=== PATIENT | female | born 1990 | race Caucasian/White ===

== ENCOUNTER 2017-09-19 12:18 | Emergency (ER) | payer SELFPAY ==
[~2017-09-19] VITALS: Ht 160 cm; Wt 57.7 kg
[2017-09-19 12:19] VITALS: BP 131/88; PULSE 86; RESP 14; TEMP 98.6; O2SAT 100
[2017-09-19] MEDS ORDERED: BUPIVACAINE HCL PF 0.5% 10 ML VIAL INFIL ONE (14:00)
[2017-09-19] MEDS ORDERED: LIDOCAINE HCL 1% 30 ML VIAL INFIL ONE (14:00)
[2017-09-19] MEDS ORDERED: TETANUS/DIPHTHERIA TOXOID ADULT 0.5 ML VIAL IM ONE (14:00)
--- NOTE | 2017-09-19 14:03 | PD ---
HPI Chief Complaint: Laceration/Skin Injury Time Seen by Provider: 13:54 Travel History International Travel<30 days: No Contact w/Intl Traveler<30days: No Traveled to known affect area: No History of Present Illness HPI Patient comes emergency department for evaluation of a laceration to right index finger and abrasion to right thumb that occurred shortly prior to arrival. Patient states she was sharpening a weed razor that had just been in a mason when the incident occurred. Patient uncertain of her last tetanus shot but noted in the computer received in 2013. Patient denies doing anything for this prior to coming to the emergency department. Denies any pain or radiation of pain. Patient [id number]. Denies anything making symptoms better or worse. 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 SKIN: Small superficial abrasion on dorsal aspect of the left thumb. Small approximately 1.5 cm laceration noted on the medial dorsal aspect of right index finger. No foreign body noted. Full range of motion. Neurovascularly intact distally. HEAD: Atraumatic. Normocephalic. EYES: Pupils equal and round. EOMI. No scleral icterus. No injection or drainage. ENT: No nasal bleeding or discharge. Mucous membranes pink and moist. NECK: Trachea midline. Supple. No nuclear rigidity. RESPIRATORY: No accessory muscle use. No respiratory distress. MUSCULOSKELETAL: No obvious deformities. No clubbing. No cyanosis. No edema. Full range of motion. NEUROLOGICAL: Awake and alert. No obvious cranial nerve deficits. Motor grossly within normal limits. Normal speech. PSYCHIATRIC: Appropriate mood and affect; insight and judgment normal. Data Data Last Documented VS Vital Signs Date Time Temp Pulse Resp B/P (MAP) Pulse Ox O2 Delivery O2 Flow Rate FiO2 09/19/17 14:54 09/19/17 12:19 98.6 86 14 100 Orders Orders Tetanus/Diphtheria Tox Adult (Tetanus/Di (09/19/17 14:00) Bupivacaine Pf 0.5% Inj (Marcaine Pf 0.5 (09/19/17 14:00) Lidocaine 1% Inj (Xylocaine 1% Inj) (09/19/17 14:00) Lidocaine Pf 1% Inj (Xylocaine-Mpf 1% In (09/19/17 14:15) Ed Discharge Order (09/19/17 14:47) MDM Medical Decision Making Medical Screen Exam Complete: Yes Emergency Medical Condition: Yes Differential Diagnosis Laceration, abrasion, contusion, foreign body Narrative Course The patient suffered laceration/s to the extremity. There was no evidence to suggest foreign bodies. Visual and tactile exams were unremarkable without evidence of foreign body at this time. There was no evidence of neurovascular injury. The patient had a normal distal vascular exam, and had full normal motor and sensory exams. There was also no evidence or tendon injury, with normal distal full range of motions, flexion, extension, abduction, adduction and opponens. There was no evidence of local joint space involvement at this time. The patient was irrigated with copious sterile normal saline and primary repair was performed. Please see procedure note. The patient was given signs and symptom warnings for infection, such as increasing pain, redness, swelling, associated heat, pus or fever. The patient was warned of possible unseen foreign body and instructed to return immediately if signs or symptoms develop. The patient was given instructions for timely follow up. The patient agreed with plan of care. Patient in no obvious distress upon re-evaluation. Patient placed on Cipro prophylactically. There as no seawater involvement thus no need for Doxy. Patient was asked if they wanted to speak to my attending, which the patient did not wish to do at this time. Any questions/concerns in reference to patient diagnosis/condition discussed and clarified prior to patient's discharge. Reinforced sheer importance of close follow up with patient's primary physician or primary care clinic. Instructed patient to return to ED immediately, if symptoms return/worsen. Patient showed understanding of above instructions. Further instructions and recommendations were detailed in discharge paperwork. Patient ambulated without difficulty out of ED at discharge. Procedures Procedure Narrative LACERATION REPAIR LOCATION: Right index finger medial dorsal aspect between the middle and distal phalanx LENGTH: Approximately 1.5 cm NUMBER OF STITCHES/BALDO: One simple mattress REPAIR: Verbal consent was obtained. The area of the laceration was cleaned and prepped. Digital block were performed using Marcaine without epi in lidocaine without epi. The wound was copiously irrigated and explored without evidence of foreign body, bony involvement, ligament injury, tendon injury, or neurovascular injury. The wound was closed using 5-0 Vicryl. This was a single layer repair. A sterile dressing was applied by nurse. The patient was advised to keep the affected area as clean and dry as possible using soap and water. There were no complications. Patient tolerated the procedure well. Diagnosis Primary Impression: Finger laceration Qualified Codes: S61.220A - Laceration with foreign body of right index finger without damage to nail, initial encounter Additional Impression: Abrasion Referrals: Oneida Briscoe MD [facility] Patient Instructions: Abrasion (ED), Care For Your Absorbable Stitches (ED), Finger Laceration (ED), General Instructions Additional Instructions: Follow-up with your primary care physician and/or hand surgeon in 3-5 days for reevaluation. Take all medication as prescribed. Keep wound dry and clean as possible using soap and water. Use Neosporin to promote healing. Do not soak or submerge wound. Return to the emergency department if symptoms get worse. Med/Other Pt SpecificInfo: Prescription(s) given Scripts Ciprofloxacin (Cipro) 500 Mg Tab 500 MG PO BID for Infection for 5 Days, #10 TAB 0 Refills Prov: Yeyo Craig MD 09/19/17 Disposition: 01 DISCHARGE HOME Condition: Stable Adolfo Demarco Sep 19, 2017 14:03
[2017-09-19] MEDS ORDERED: LIDOCAINE HCL 1% PF 30 ML VIAL INFIL ONE (14:15)
[2017-09-19] MEDS ORDERED: CIPR-9 PO (14:40)
== END 2017-09-19 14:55 | disposition home or self-care (01) ==
LOC: NEPK 12:18
DX: S61.210A Laceration without foreign body of right index finger without damage to nail, initial encounter (principal); S60.311A Abrasion of right thumb, initial encounter; W26.8XXA Contact with other sharp object(s), not elsewhere classified, initial encounter; F31.9 Bipolar disorder, unspecified; F41.9 Anxiety disorder, unspecified; F17.200 Nicotine dependence, unspecified, uncomplicated; Z23 Encounter for immunization
CPT/HCPCS: 12001; 90471; 90714

== ENCOUNTER 2017-11-10 14:41 | Emergency (ER) | payer OTHER ==
[~2017-11-10] VITALS: Ht 160 cm; Wt 60.0 kg
[~2017-11-10 14:41] MED LIST: CIPR-9 PO
[2017-11-10 15:20] VITALS: BP 112/60; PULSE 68; RESP 16; TEMP 98.2; O2SAT 99
--- NOTE | 2017-11-10 17:57 | PD ---
HPI Chief Complaint: Related Problem Time Seen by Provider: 17:50 Travel History International Travel<30 days: No Contact w/Intl Traveler<30days: No Traveled to known affect area: No History of Present Illness HPI 26-year-old female , LMP the end of August, here for evaluation of intermittent lower abdominal cramping. She states that she went to a free clinic today where she had an ultrasound performed and showed no heart rate. She denies vaginal bleeding or discharge. No urinary symptoms. No fevers. She is concerned because her previous ended in a miscarriage. 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 SKIN: Focused skin assessment warm/dry. HEAD: Atraumatic. Normocephalic. EYES: Pupils equal and round. No scleral icterus. No injection or drainage. ENT: Mucous membranes pink and moist. NECK: Trachea midline. No JVD. CARDIOVASCULAR: Regular rate and rhythm. RESPIRATORY: No accessory muscle use. Clear to auscultation. Breath sounds equal bilaterally. GASTROINTESTINAL: Abdomen soft, non-tender, nondistended. MUSCULOSKELETAL: No obvious deformities. No clubbing. No cyanosis. No edema. NEUROLOGICAL: Awake and alert. No obvious cranial nerve deficits. Motor grossly within normal limits. Normal speech. PSYCHIATRIC: Appropriate mood and affect; insight and judgment normal. Data Data Last Documented VS Vital Signs Date Time Temp Pulse Resp B/P (MAP) Pulse Ox O2 Delivery O2 Flow Rate FiO2 11/10/17 15:20 98.2 68 16 112/60 (77) 99 Orders Orders Beta Hcg (Quant/Titer) (11/10/17 17:55) Complete Blood Count With Diff (11/10/17 17:55) Comprehensive Metabolic Panel (11/10/17 17:55) Urinalysis - C+S If Indicated (11/10/17 17:55) Ed Urine Pregnancytest Poc (11/10/17 17:55) Us Pelvis (Ques Pr/Ect)W Trans (11/10/17 ) Labs Laboratory Tests Test 11/10/17 18:10 White Blood Count 9.5 TH/MM3 Red Blood Count 4.51 MIL/MM3 Hemoglobin 14.2 GM/DL Hematocrit 40.7 % Mean Corpuscular Volume 90.4 FL Mean Corpuscular Hemoglobin 31.5 PG Mean Corpuscular Hemoglobin Concent 34.8 % Red Cell Distribution Width 13.3 % Platelet Count 238 TH/MM3 Mean Platelet Volume 8.2 FL Neutrophils (%) (Auto) 69.0 % Lymphocytes (%) (Auto) 24.8 % Monocytes (%) (Auto) 5.3 % Eosinophils (%) (Auto) 0.6 % Basophils (%) (Auto) 0.3 % Neutrophils # (Auto) 6.5 TH/MM3 Lymphocytes # (Auto) 2.3 TH/MM3 Monocytes # (Auto) 0.5 TH/MM3 Eosinophils # (Auto) 0.1 TH/MM3 Basophils # (Auto) 0.0 TH/MM3 CBC Comment DIFF FINAL Differential Comment Urine Color YELLOW Urine Turbidity CLOUDY Urine pH 6.5 Urine Specific [place] 1.022 Urine Protein TRACE mg/dL Urine Glucose (UA) NEG mg/dL Urine Ketones NEG mg/dL Urine Occult Blood NEG Urine Nitrite NEG Urine Bilirubin NEG Urine Urobilinogen LESS THAN 2.0 MG/DL Urine Leukocyte Esterase MOD Urine WBC 6 /hpf Urine Squamous Epithelial Cells 98 /hpf Urine Bacteria FEW /hpf Urine Mucus FEW /lpf Microscopic Urinalysis Comment CULT NOT INDICATED Blood Urea Nitrogen 11 MG/DL Creatinine 0.73 MG/DL Random Glucose 93 MG/DL Total Protein 7.7 GM/DL Albumin 3.9 GM/DL Calcium Level 9.1 MG/DL Alkaline Phosphatase 49 U/L Aspartate Amino Transf (AST/SGOT) 28 U/L Alanine Aminotransferase (ALT/SGPT) 79 U/L Total Bilirubin 0.2 MG/DL Sodium Level 135 MEQ/L Potassium Level 3.4 MEQ/L Chloride Level 104 MEQ/L Carbon Dioxide Level 22.3 MEQ/L Anion Gap 9 MEQ/L Estimat Glomerular Filtration Rate 97 ML/MIN Human Chorionic Gonadotropin, Quant 08919 MIU/ML MDM Medical Decision Making Medical Screen Exam Complete: Yes Emergency Medical Condition: Yes Differential Diagnosis , ectopic , spontaneous , missed , UTI Narrative Course Vital signs show heart rate 68, blood pressure 112/60, pulse ox 99% on room air , oral temperature 98.2F. CBC is unremarkable. CMP is unremarkable. Beta hCG is 48,541. UA: Cloudy, moderate leukocyte esterase, 6 WBCs, few bacteria, few mucus, culture not indicated. Pelvic ultrasound: CONCLUSION: 1. 8 week gestational age intrauterine with apparent demise. 2. Small cyst of the left ovary, probably corpus luteal. Nothing typical of an ectopic. No free fluid. Patient was made aware of all findings. She is resting comfortably. Again she has not had any vaginal bleeding or discharge. She will be started on Keflex for bacteriuria. I explained all the results in detail with her and told her that this is more than likely a miscarriage, however my recommendation at this time is to have her repeat her pelvic ultrasound and beta-hCG in 1 week. She was advised on when to return to the emergency department patient verbalizes understanding and agreement with plan. Diagnosis Primary Impression: Early vs miscarriage Additional Impression: Bacteriuria Referrals: Gas Specialist 3 days Primary Care Physician 3 days Additional Instructions: Follow-up with an SPECTROGRAPHER physician or your primary care physician to have repeat beta-hCG and pelvic ultrasound in 1 week. Return to the emergency department for worsening symptoms or any other concerns. Scripts Cephalexin (Keflex) 500 Mg Cap 500 MG PO Q12H for Infection for 5 Days, #10 CAP 0 Refills Prov: Felix Pittman MD 11/10/17 Disposition: 01 DISCHARGE HOME Condition: Stable Felix Pittman MD Nov 10, 2017 17:57
[2017-11-10 18:29] LABS: AUTOMATED NEUTROPHIL # 6.5 TH/MM3 (1.8-7.7); BASOPHIL % 0.3 % (0.0-2.0); EOSINOPHIL # 0.1 TH/MM3 (0-0.4); EOSINOPHIL % 0.6 % (0.0-4.0); HEMATOCRIT 40.7 % (35.0-46.0); HEMOGLOBIN 14.2 GM/DL (11.6-15.3); LYMPH % 24.8 % (9.0-44.0); LYMPHOCYTE # 2.3 TH/MM3 (1.0-4.8); MEAN CELL VOLUME 90.4 FL (80.0-100.0); MEAN CORPUSCULAR HEMOGLOBIN 31.5 PG (27.0-34.0); MEAN CORPUSCULAR HGB CONC 34.8 % (32.0-36.0); MEAN PLATELET VOLUME 8.2 FL (7.0-11.0); MONO % 5.3 % (0.0-8.0); MONOCYTE # 0.5 TH/MM3 (0-0.9); PLATELET COUNT 238 TH/MM3 (150-450); RED BLOOD COUNT 4.51 MIL/MM3 (4.00-5.30); RED CELL DISTRIBUTION WIDTH 13.3 % (11.6-17.2); WHITE BLOOD COUNT 9.5 TH/MM3 (4.0-11.0)
[2017-11-10 18:39] LABS: BACTERIA, URINE FEW /hpf; BILIRUBIN, URINE NEG (NEG); BLOOD, URINE NEG (NEG); GLUCOSE,URINE NEG (NEG); KETONE, URINE NEG (NEG); MUCUS URINE FEW /lpf (OCC); NITRITE,URINE NEG (NEG); PH, URINE 6.5 (5.0-8.5); SQUAMOUS EPITHELIAL CELL URINE 98 /hpf (0-5); URINE COLOR YELLOW (YELLW/STRAW); URINE LEUKOCYTE ESTERASE MOD (NEG)
[2017-11-10 18:45] LABS: ALBUMIN 3.9 GM/DL (3.4-5.0); ALT (GPT) 79 U/L (10-53); AST (GOT) 28 U/L (15-37); BICARBONATE 22.3 MEQ/L (21.0-32.0); BLOOD UREA NITROGEN 11 MG/DL (7-18); CALCIUM 9.1 MG/DL (8.5-10.1); CHLORIDE 104 MEQ/L (98-107); CREATININE 0.73 MG/DL (0.50-1.00); GLOMERULAR FILTRATION RATE 97 ML/MIN (>89); GLUCOSE,RANDOM 93 MG/DL (74-106); SODIUM (NA) 135 MEQ/L (136-145)
[2017-11-10 19:02] LABS: ALKALINE PHOSPHATASE 49 U/L (45-117); TOTAL BILIRUBIN ADULT 0.2 MG/DL (0.2-1.0); TOTAL PROTEIN 7.7 GM/DL (6.4-8.2)
--- NOTE | 2017-11-10 19:30 | RADRPT ---
EXAM DATE/TIME: 11/10/2017 18:31 [facility] COMPARISON: No previous studies available for comparison. INDICATIONS : Pelvic pain. LAB(S): Beta-hC MEDICAL HISTORY : Bipolar disorder. Depression. Anxiety. Substance abuse. SURGICAL HISTORY : Appendectomy. ENCOUNTER: Initial ACUITY: 1 day PAIN SCORE: 110 LOCATION: Bilateral pelvis MEASUREMENTS: UTERUS: 8.8 x 6.7 x 4.7 cm ENDOMETRIAL STRIPE: 17 mm RIGHT OVARY: 3.3 x 1.6 x 2.0 cm LEFT OVARY: 3.0 x 2.5 x 2.1 cm FREE FLUID: No CROWN RUMP LENGTH: 1.7 = 8 WKS 1 DAYS FHR: NOT VISUALIZED BPM FINDINGS: UTERUS: Yolk sac the gestational sac and pole seen within the uterine cavity at approximately 8 weeks o ne day gestational age based on crown-rump length. No perceptible heart tones. RIGHT OVARY: Ovary contains no mass or significant cystic lesion. LEFT OVARY: 15 mm cyst. MISCELLANEOUS: No free fluid. CONCLUSION: 1. 8 week gestational age intrauterine with apparent demise. 2. Small cyst of the left ovary, probably corpus luteal. Nothing typical of an ectopic. No free fluid . Luis Eduardo Irwin MD on November 10, 2017 at 19:26 Board Certified Radiologist. This report was verified electronically.
[2017-11-10] MEDS ORDERED: CEPH-460 PO (19:45)
[2017-11-10] MEDS ORDERED: CEPHALEXIN MONOHYDRATE 500 MG CAP PO ONE (20:00)
== END 2017-11-10 20:00 | disposition home or self-care (01) ==
LOC: NEPD 14:41
DX: O26.891 Other specified pregnancy related conditions, first trimester (principal); R82.71 Bacteriuria; Z3A.08 8 weeks gestation of pregnancy
CPT/HCPCS: 76700; 76817; 80053; 81001; 84702; 84703; 85025

== ENCOUNTER → 2017-11-21 | Day surgery (SDC) | payer OTHER ==
[~2017-11-21] VITALS: Ht 160 cm; Wt 59.7 kg
[~2017-11-21] MED LIST changes: +ACETAMINOPHEN 1000 MG/100 ML 100 ML IV ONE; +CEFAZOLIN INJ 2,000 MG in SODIUM CHLORIDE 0.9% INJ 100 ML IV SCH; +CEPH-460 PO; +CHLORHEXIDINE GLUCONATE 2 % 1 PACK (2 CLOTHS) TOPICAL PRN; +DEXAMETHASONE SOD PHOS 4 MG/ML VIAL IV ONE; +DO NOT ADM ANY ANTICOAGULANT DRUGS PRN; +KETOROLAC TROMETHAMINE 30 MG/ML (IVP) VIAL IV PUSH ONE; +LACTATED RINGER'S 1000 ML IV PRN; +LIDOCAINE HCL 1% PF 5 ML SYRINGE OTHER ONE; +METOPROLOL TARTRATE 25 MG TAB PO PRN; +MIDAZOLAM HCL 2 MG/2 ML VIAL ONE; +ONDANSETRON HCL 4 MG/2 ML VIAL IV ONE; +ONDANSETRON HCL 4 MG/2 ML VIAL IV PUSH PRN; +ONDANSETRON ODT 4 MG TAB PO PRN; +POVIDONE IODINE 5% (ANTISEPSIS KIT) 4 APPLICATIONS EACH NARE PRN; +PROPOFOL 200 MG/20 ML AMP IV ONE; +SODIUM CHLORID 0.9% 500 ML IV PRN
--- NOTE | 2017-11-21 08:35 | MP ---
cc: Johnny Tong MD DATE OF OPERATION: 11/21/2017 PREOPERATIVE DIAGNOSIS: Missed . POSTOPERATIVE DIAGNOSIS: Missed . OPERATION: Suction curettage. SURGEON: Johnny Tong MD ANESTHESIA: General. ESTIMATED BLOOD LOSS: 100 mL DATA ANALYST REPORT WRITER: None. COMPLICATIONS: None. FINDINGS: Consistent with a missed approximately 8 weeks. PROCEDURE: The patient was prepped and draped in the dorsal lithotomy position. A weighted speculum was placed in the posterior vaginal and the anterior lip of cervix grasped with a single-tooth tenaculum. Cervix was dilated up using Dontrell dilators, and then a #8 suction curetting instrument was entered in the endometrial cavity and curettings were taken, after which the tenaculum and speculum were removed. Good hemostasis was noted and the patient returned to recovery room in stable condition. MD MARITZA Abernathy/LK , 08:22 AM , 08:34 AM
[2017-11-21 10:04] VITALS: BP 99/63; PULSE 70; RESP 18; TEMP 97.9; O2SAT 100
== END | disposition home or self-care (01) ==
LOC: HSDC 05:40
PROVIDERS: ATTEND Obstetrics & Gynecology
DX: O02.1 Missed abortion (principal)
CPT/HCPCS: 01965; 59820; 86850; 86900; 86901; 88305; J0131; J0690; J1100; J1885; J2250; J2405; J7120

== ENCOUNTER 2018-01-02 06:53 | Emergency (ER) | payer OTHER ==
[2018-01-02] MEDS: KETOROLAC TROMETHAMINE 60 MG/2 ML (IM) VIAL IM (07:38)
[2018-01-02] MEDS: AMOXICILLIN/CLAVULANATE K 875 MG TAB PO (08:05)
[2018-01-02] MEDS: CLINDAMYCIN PHOS 600 MG/4 ML VIAL IM (08:05)
[2018-01-02] MEDS: traMADol HCL 50 MG TAB PO (08:29)
== END 2018-01-02 08:59 | disposition home or self-care (01) ==
LOC: NEPD 06:53
DX: S91.131A Puncture wound without foreign body of right great toe without damage to nail, initial encounter (principal); W22.8XXA Striking against or struck by other objects, initial encounter; Y92.828 Other wilderness area as the place of occurrence of the external cause
CPT/HCPCS: 73630; 96372; 99283-25

== ENCOUNTER 2018-01-02 19:09 | Inpatient (IN) | payer OTHER ==
[~2018-01-02] VITALS: Ht 160 cm; Wt 61.6 kg
[2018-01-02] MEDS: SODIUM CHLOR 0.9% 1000 ML INJ 1,000 ML IV SCH
[~2018-01-02 19:09] MED LIST changes: -ACETAMINOPHEN 1000 MG/100 ML 100 ML IV ONE; +AUGM875T3 PO; -CEFAZOLIN INJ 2,000 MG in SODIUM CHLORIDE 0.9% INJ 100 ML IV SCH; -CEPH-460 PO; -CHLORHEXIDINE GLUCONATE 2 % 1 PACK (2 CLOTHS) TOPICAL PRN; -CIPR-9 PO; +CLIN150C14 PO; -DEXAMETHASONE SOD PHOS 4 MG/ML VIAL IV ONE; -DO NOT ADM ANY ANTICOAGULANT DRUGS PRN; +IBUP1TAB7 PO; -KETOROLAC TROMETHAMINE 30 MG/ML (IVP) VIAL IV PUSH ONE; -LACTATED RINGER'S 1000 ML IV PRN; -LIDOCAINE HCL 1% PF 5 ML SYRINGE OTHER ONE; -METOPROLOL TARTRATE 25 MG TAB PO PRN; -MIDAZOLAM HCL 2 MG/2 ML VIAL ONE; -ONDANSETRON HCL 4 MG/2 ML VIAL IV ONE; -ONDANSETRON HCL 4 MG/2 ML VIAL IV PUSH PRN; -ONDANSETRON ODT 4 MG TAB PO PRN; -POVIDONE IODINE 5% (ANTISEPSIS KIT) 4 APPLICATIONS EACH NARE PRN; -PROPOFOL 200 MG/20 ML AMP IV ONE; -SODIUM CHLORID 0.9% 500 ML IV PRN; +TRAM50TA PO
[2018-01-02 19:49] VITALS: BP 116/64; PULSE 115; RESP 18; TEMP 99.2; O2SAT 95
--- NOTE | 2018-01-02 20:59 | PD ---
HPI Chief Complaint: GI Complaint Time Seen by Provider: 20:58 Travel History International Travel<30 days: No Contact w/Intl Traveler<30days: No Traveled to known affect area: No History of Present Illness HPI 42-year-old female came to the emergency room with history of vomiting since she left the hospital today. Patient says she was in the emergency room to be seen for her right toe infection after she stepped on something while she was in the mason yesterday. It was hurting and she came to the emergency room for that. She was given IV antibiotic and pain medication and was discharged home on prescription antibiotic. However patient says after she left she must have vomited 10 times and has been unable to keep anything down. She feels very dehydrated. She was tachycardic in triage with a temperature of 99.9. She also has noticed some streaking going up her foot from the toe area. [facility] Past Medical History Narrative Medical List of her past medical, surgical, social and family history reviewed from the nursing note. Bipolar Disorder: Yes Anxiety: Yes Depression: Yes Cancer: No Cardiovascular Problems: No Diabetes: No Diminished Hearing: No Endocrine: No Genitourinary: No Hepatitis: No Hiatal Hernia: No Immune Disorder: No Musculoskeletal: No Neurologic: No Psychiatric: No Reproductive: No Respiratory: No Tetanus Vaccination: < 5 Years Influenza Vaccination: No ?: Not LMP: mischarage last month : 1 Para: 0 Miscarriage: 1 : 0 Past Surgical History Abdominal Surgery: Yes (APPY) Appendectomy: Yes Body Medical Devices: NONE Cardiac Surgery: No Ear Surgery: No Endocrine Surgery: No Eye Surgery: No Genitourinary Surgery: No Gynecologic Surgery: Yes (D&C) Oral Surgery: No Thoracic Surgery: No Other Surgery: Yes Social History Alcohol Use: No Tobacco Use: Yes Substance Use: No Allergies-Medications (Allergen,Severity, Reaction): Coded Allergies: No Known Allergies (Unverified , 01/02/18) Comments No known drug allergies. Reported Meds & Prescriptions Reported Meds & Active Scripts Active Tramadol (Tramadol HCl) 50 Mg Tab 50 Mg PO Q4H PRN Ibuprofen 800 Mg Tab 800 Mg PO Q6HR PRN Augmentin (Amoxicillin-Clavulanate) 875-125 Mg Tab 1 Tab PO BID 10 Days Clindamycin (Clindamycin HCl) 150 Mg Cap 450 Mg PO Q6H 10 Days Narrative Medication List of her home medications reviewed from the nursing note. Review of Systems Except as stated in HPI: all other systems reviewed are Neg Gastrointestinal: Positive: Nausea, Vomiting Physical Exam Narrative GENERAL: Awake, alert, moderate distress SKIN: Focused skin assessment warm/dry. Flushed HEAD: Atraumatic. Normocephalic. EYES: Pupils equal and round. No scleral icterus. No injection or drainage. ENT: No nasal bleeding or discharge. Mucous membranes pink and moist. NECK: Trachea midline. No JVD. CARDIOVASCULAR: Regular rate and rhythm. No murmur appreciated. RESPIRATORY: No accessory muscle use. Clear to auscultation. Breath sounds equal bilaterally. GASTROINTESTINAL: Abdomen soft, non-tender, nondistended. Hepatic and splenic margins not palpable. MUSCULOSKELETAL: No obvious deformities. No clubbing. No cyanosis. No edema. Right foot great toe appears to be erythematous and swollen mostly on the dorsal aspect. The plantar aspect of the toe has a wound that does not have any discharge. There is two red streaks going proximally on the dorsum of the foot from the toe to the ankle NEUROLOGICAL: Awake and alert. No obvious cranial nerve deficits. Motor grossly within normal limits. Normal speech. PSYCHIATRIC: Appropriate mood and affect; insight and judgment normal. Data Data Last Documented VS Orders Orders Sepsis Workup Initiated (01/02/18 ) Complete Blood Count With Diff (01/02/18 21:09) Comprehensive Metabolic Panel (01/02/18 21:09) Lactic Acid Sepsis Protocol (01/02/18 21:09) Urinalysis - C+S If Indicated (01/02/18 21:09) Blood Culture (01/02/18 21:09) Blood Glucose (01/02/18 21:09) Ecg Monitoring (01/02/18 21:09) Iv Access Insert/Monitor (01/02/18 21:09) Oximetry (01/02/18 21:09) Oxygen Administration (01/02/18 21:09) Acetaminophen (Tylenol) (01/02/18 21:15) Sodium Chlor 0.9% 1000 Ml Inj (Ns 1000 M (01/02/18 21:15) Sodium Chlor 0.9% 1000 Ml Inj (Ns 1000 M (01/02/18 21:15) Ondansetron Inj (Zofran Inj) (01/02/18 21:15) Vancomycin Inj (Vancomycin Inj) (01/02/18 21:15) Diphenhydramine Inj (Benadryl Inj) (01/02/18 22:45) Drug Screen, Random Urine (01/02/18 22:53) Admit Order (Ed Use Only) (01/02/18 22:56) Vancomycin Consult Pharmacy (Vancomycin (01/02/18 23:00) Piperacil-Tazo 4.5 Gm Premix (Zosyn 4.5 (01/02/18 23:00) Westergren Sedimentation Rate (01/02/18 22:54) C-Reactive Protein (Crp) (01/02/18 22:54) Consult Podiatry (01/02/18 ) Ct Foot W Iv Contrast (01/02/18 ) Admit To Inpatient (01/02/18 ) Vital Signs (Adult) Q4H (01/02/18 22:54) Activity Oob With Assistance (01/02/18 22:54) Diet Npo (01/03/18 Breakfast) Sodium Chlor 0.9% 1000 Ml Inj (Ns 1000 M (01/02/18 22:54) Sodium Chloride 0.9% Flush (Ns Flush) (01/02/18 23:00) Sodium Chloride 0.9% Flush (Ns Flush) (01/03/18 09:00) Ondansetron Inj (Zofran Inj) (01/02/18 23:00) Comprehensive Metabolic Panel (01/03/18 06:00) Complete Blood Count With Diff (01/03/18 06:00) Pt Request For Service (01/02/18 22:54) Case Management Consult (01/02/18 22:54) Scd Bilateral/Knee High DOUG.BID (01/02/18 22:54) Naloxone Inj (Narcan Inj) (01/02/18 23:00) Magnesium Hydroxide Liq (Milk Of Magnesi (01/02/18 23:00) Sennosides (Senokot) (01/02/18 23:00) Bisacodyl Supp (Dulcolax Supp) (01/02/18 23:00) Lactulose Liq (Lactulose Liq) (01/02/18 23:00) Inpatient Certification (01/02/18 ) Beta Hcg (Quant/Titer) (01/02/18 21:51) Labs Laboratory Tests Test 01/02/18 21:51 White Blood Count 19.8 TH/MM3 Red Blood Count 4.54 MIL/MM3 Hemoglobin 13.7 GM/DL Hematocrit 40.7 % Mean Corpuscular Volume 89.7 FL Mean Corpuscular Hemoglobin 30.2 PG Mean Corpuscular Hemoglobin Concent 33.7 % Red Cell Distribution Width 12.8 % Platelet Count 270 TH/MM3 Mean Platelet Volume 8.8 FL Neutrophils (%) (Auto) 92.5 % Lymphocytes (%) (Auto) 4.7 % Monocytes (%) (Auto) 2.7 % Eosinophils (%) (Auto) 0.0 % Basophils (%) (Auto) 0.1 % Neutrophils # (Auto) 18.3 TH/MM3 Lymphocytes # (Auto) 0.9 TH/MM3 Monocytes # (Auto) 0.5 TH/MM3 Eosinophils # (Auto) 0.0 TH/MM3 Basophils # (Auto) 0.0 TH/MM3 CBC Comment DIFF FINAL Differential Comment Erythrocyte Sedimentation Rate 7 mm/hr Blood Urea Nitrogen 14 MG/DL Creatinine 0.85 MG/DL Random Glucose 89 MG/DL Total Protein 7.8 GM/DL Albumin 4.0 GM/DL Calcium Level 9.1 MG/DL Alkaline Phosphatase 71 U/L Aspartate Amino Transf (AST/SGOT) 37 U/L Alanine Aminotransferase (ALT/SGPT) 62 U/L Total Bilirubin 0.7 MG/DL Sodium Level 138 MEQ/L Potassium Level 4.2 MEQ/L Chloride Level 106 MEQ/L Carbon Dioxide Level 24.1 MEQ/L Anion Gap 8 MEQ/L Estimat Glomerular Filtration Rate 81 ML/MIN Lactic Acid Level 0.9 mmol/L Human Chorionic Gonadotropin, Quant 2 MIU/ML MDM Medical Decision Making Medical Screen Exam Complete: Yes Emergency Medical Condition: Yes Medical Record Reviewed: Yes Differential Diagnosis Cellulitis, thrombophlebitis, outpatient treatment failure, dehydration, sepsis Narrative Course 9:26 PM awaiting for blood test result. Patient is getting IV fluid bolus, IV Zofran and IV vancomycin. Patient will get Tylenol for fever. I have let her know that she would require to be admitted given the fact that the infection seems to be getting worse. 10:41 PM blood test results are back and white count is significantly elevated with a left shift. Chemistries back and within acceptable limit. Lactic acid is within normal limits. Patient started having some redness with the vancomycin infusion probably red man's syndrome. I will order some Benadryl. Awaiting for the hospitalist to call back for admission. She should be consulted with podiatry for this. Procedures EKG Prior to Arrival: No Diagnosis Primary Impression: Cellulitis Qualified Codes: L03.115 - Cellulitis of right lower limb Additional Impressions: Thrombophlebitis SIRS (systemic inflammatory response syndrome) Vomiting Qualified Codes: R11.2 - Nausea with vomiting, unspecified Admitting Information Admitting Physician Requests: Admit Chad Kumar MD January 02, 2018 20:59
[2018-01-02] MEDS ORDERED: ONDANSETRON HCL 4 MG/2 ML VIAL IV PUSH ONE (21:15)
[2018-01-02] MEDS ORDERED: VANCOMYCIN INJ 1,000 MG in SODIUM CHLOR 0.9% 250 ML INJ 250 ML IV ONE (21:15)
[2018-01-02] MEDS ORDERED: SODIUM CHLOR 0.9% 1000 ML INJ 1,000 ML IV ONE ×2 (21:15)
[2018-01-02] MEDS ORDERED: ACETAMINOPHEN 325 MG TAB PO ONE (21:15)
[2018-01-02 21:55] VITALS: BP 107/55; PULSE 86; RESP 18; O2SAT 100
[2018-01-02 22:00] VITALS: BP 107/55; PULSE 105; RESP 18; O2SAT 99
[2018-01-02 22:26] LABS: AUTOMATED NEUTROPHIL # 18.3 TH/MM3 (1.8-7.7); BASOPHIL % 0.1 % (0.0-2.0); HEMATOCRIT 40.7 % (35.0-46.0); HEMOGLOBIN 13.7 GM/DL (11.6-15.3); LYMPH % 4.7 % (9.0-44.0); LYMPHOCYTE # 0.9 TH/MM3 (1.0-4.8); MEAN CELL VOLUME 89.7 FL (80.0-100.0); MEAN CORPUSCULAR HEMOGLOBIN 30.2 PG (27.0-34.0); MEAN CORPUSCULAR HGB CONC 33.7 % (32.0-36.0); MEAN PLATELET VOLUME 8.8 FL (7.0-11.0); MONO % 2.7 % (0.0-8.0); MONOCYTE # 0.5 TH/MM3 (0-0.9); NEUT % 92.5 % (16.0-70.0); PLATELET COUNT 270 TH/MM3 (150-450); RED BLOOD COUNT 4.54 MIL/MM3 (4.00-5.30); RED CELL DISTRIBUTION WIDTH 12.8 % (11.6-17.2); WHITE BLOOD COUNT 19.8 TH/MM3 (4.0-11.0)
[2018-01-02 22:39] LABS: ALT (GPT) 62 U/L (10-53)
[2018-01-02 22:40] LABS: AST (GOT) 37 U/L (15-37); BICARBONATE 24.1 MEQ/L (21.0-32.0); BLOOD UREA NITROGEN 14 MG/DL (7-18); CALCIUM 9.1 MG/DL (8.5-10.1); CHLORIDE 106 MEQ/L (98-107); CREATININE 0.85 MG/DL (0.50-1.00); GLOMERULAR FILTRATION RATE 81 ML/MIN (>89); GLUCOSE,RANDOM 89 MG/DL (74-106); SODIUM (NA) 138 MEQ/L (136-145)
[2018-01-02 22:41] LABS: ALKALINE PHOSPHATASE 71 U/L (45-117); TOTAL BILIRUBIN ADULT 0.7 MG/DL (0.2-1.0); TOTAL PROTEIN 7.8 GM/DL (6.4-8.2)
[2018-01-02] MEDS ORDERED: diphenhydrAMINE HCL 50 MG/ML VIAL IV PUSH ONE (22:45)
[2018-01-02] MEDS ORDERED: BISACODYL 10 MG SUPP RECTAL PRN (23:00)
[2018-01-02] MEDS ORDERED: Vancomycin Consult Pharmacy 1 EA OTHER SCH (23:00)
[2018-01-02] MEDS ORDERED: SODIUM CHLORIDE 0.9% FLUSH 10 ML FLUSH IV FLUSH PRN (23:00)
[2018-01-02] MEDS ORDERED: LACTULOSE SYRUP 20 GM/30 ML CUP PO PRN (23:00)
[2018-01-02] MEDS ORDERED: SENNOSIDES 8.6 MG TAB PO PRN (23:00)
[2018-01-02] MEDS ORDERED: MAGNESIUM HYDROXIDE SUSP 30 ML CUP PO PRN (23:00)
[2018-01-02] MEDS ORDERED: NALOXONE HCL 0.4 MG/ML AMP IV PUSH PRN (23:00)
[2018-01-02] MEDS ORDERED: ONDANSETRON HCL 4 MG/2 ML VIAL IVP PRN (23:00)
[2018-01-02 23:09] VITALS: BP 103/53; PULSE 101; RESP 16; O2SAT 100
[2018-01-02 23:25] LABS: BILIRUBIN, URINE NEG (NEG); BLOOD, URINE NEG (NEG); GLUCOSE,URINE NEG (NEG); KETONE, URINE 80 mg/dL (NEG); MUCUS URINE FEW /lpf (OCC); NITRITE,URINE NEG (NEG); PH, URINE 6.5 (5.0-8.5); RENAL EPITHELIAL CELLS <1 /hpf; SQUAMOUS EPITHELIAL CELL URINE 11 /hpf (0-5); URINE COLOR YELLOW (YELLW/STRAW); URINE LEUKOCYTE ESTERASE NEG (NEG)
[2018-01-02] MEDS ORDERED: MORPHINE SULFATE 4 MG/ML INJ IV PUSH PRN (23:45)
[2018-01-03] VITALS (9 sets, daily range): BP systolic 93–135; BP diastolic 51–67; PULSE 78–99; RESP 16–20; TEMP 98–99; O2SAT 95–100
[2018-01-03] MEDS ORDERED: oxyCODONE/ACETAMINOPHEN 5 MG/325 MG TAB PO PRN
[2018-01-03] MEDS ORDERED: NALOXONE HCL 0.4 MG/ML AMP IV PUSH PRN
--- NOTE | 2018-01-03 00:21 | HHI.HP ---
HPI Service [facility] Primary Care Physician No Primary Care Physician Admission Diagnosis Cellulitis, thrombophlebitis, SIRS Diagnoses: Travel History International Travel<30 Days: No Contact w/Intl Traveler <30 Da: No Traveled to Known Affected Are: No History of Present Illness 27-year-old female with no significant past medical history, who initially presented with pain and swelling of right toe this morning, having stepped on what she thought was rebar in a fresh water mason yesterday. She was sent home on by mouth antibiotics, Augmentin and Clinda however returns to the hospital due to nausea and vomiting since this morning, unable to keep anything down. Positive subjective fevers. Constant severe pain in right toe, worsening since yesterday Review of Systems Except as stated in HPI: all other systems reviewed are Neg Past Family Social History Past Medical History She denies any past medical history She does have a past history of polysubstance abuse Past Surgical History Appendectomy. Dilation and curettage Reported Medications Patient has been taking Augmentin and clindamycin today. Allergies: Coded Allergies: No Known Allergies (Unverified , 01/02/18) Family History Father with a stroke. Social History Patient smokes one half pack per day for the past 10 years. Denies drinking. He denies illicit drugs, however has a history of polysubstance abuse. Physical Exam Vital Signs Vital Signs Date Time Temp Pulse Resp B/P (MAP) Pulse Ox O2 Delivery O2 Flow Rate FiO2 01/02/18 23:09 101 16 103/53 (70) 100 Room Air 01/02/18 22:00 105 18 107/55 (72) 99 Room Air 01/02/18 21:55 86 18 107/55 (72) 100 Room Air 01/02/18 19:49 99.2 115 18 116/64 (81) 95 Physical Exam GENERAL: This is a well-nourished, well-developed patient, in no apparent distress. Alert and oriented 3. SKIN: No rashes, ecchymoses or lesions. Cool and dry. HEAD: Atraumatic. Normocephalic. No temporal or scalp tenderness. EYES: Pupils equal round and reactive. Extraocular motions intact. No scleral icterus. No injection or drainage. ENT: Nose without bleeding, purulent drainage or septal hematoma. Throat without erythema, tonsillar hypertrophy or exudate. Uvula midline. Airway patent. NECK: Trachea midline. No JVD or lymphadenopathy. Supple, nontender, no meningeal signs. CARDIOVASCULAR: Regular rate and rhythm without murmurs, gallops, or rubs. RESPIRATORY: Clear to auscultation. Breath sounds equal bilaterally. No wheezes , rales, or rhonchi. GASTROINTESTINAL: Abdomen soft, non-tender, nondistended. No hepato-splenomegaly , or palpable masses. No guarding. MUSCULOSKELETAL: Extremities without clubbing, cyanosis, or edema. effusion, or edema noted. No calf tenderness. Negative Homans sign bilaterally. Patient has small puncture wound right first toe with erythema extending up to the dorsum of the foot. Tender to palpation. No crepitus. NEUROLOGICAL: Awake and alert. Cranial nerves II through XII intact. Motor and sensory grossly within normal limits. Five out of 5 muscle strength in all muscle groups. Normal speech. Laboratory Laboratory Tests Test 01/02/18 21:51 01/02/18 23:06 White Blood Count 19.8 Red Blood Count 4.54 Hemoglobin 13.7 Hematocrit 40.7 Mean Corpuscular Volume 89.7 Mean Corpuscular Hemoglobin 30.2 Mean Corpuscular Hemoglobin Concent 33.7 Red Cell Distribution Width 12.8 Platelet Count 270 Mean Platelet Volume 8.8 Neutrophils (%) (Auto) 92.5 Lymphocytes (%) (Auto) 4.7 Monocytes (%) (Auto) 2.7 Eosinophils (%) (Auto) 0.0 Basophils (%) (Auto) 0.1 Neutrophils # (Auto) 18.3 Lymphocytes # (Auto) 0.9 Monocytes # (Auto) 0.5 Eosinophils # (Auto) 0.0 Basophils # (Auto) 0.0 CBC Comment DIFF FINAL Differential Comment Erythrocyte Sedimentation Rate 7 Blood Urea Nitrogen 14 Creatinine 0.85 Random Glucose 89 Total Protein 7.8 Albumin 4.0 Calcium Level 9.1 Alkaline Phosphatase 71 Aspartate Amino Transf (AST/SGOT) 37 Alanine Aminotransferase (ALT/SGPT) 62 Total Bilirubin 0.7 Sodium Level 138 Potassium Level 4.2 Chloride Level 106 Carbon Dioxide Level 24.1 Anion Gap 8 Estimat Glomerular Filtration Rate 81 Lactic Acid Level 0.9 Human Chorionic Gonadotropin, Quant 2 Urine Color YELLOW Urine Turbidity HAZY Urine pH 6.5 Urine Specific [place] 1.021 Urine Protein TRACE Urine Glucose (UA) NEG Urine Ketones 80 Urine Occult Blood NEG Urine Nitrite NEG Urine Bilirubin NEG Urine Urobilinogen LESS THAN 2.0 Urine Leukocyte Esterase NEG Urine RBC 1 Urine WBC 3 Urine Squamous Epithelial Cells 11 Urine Renal Epithelial Cells <1 Urine Mucus FEW Microscopic Urinalysis Comment CATH-CULT NOT IND Urine Opiates Screen NEG Urine Barbiturates Screen NEG Urine Amphetamines Screen NEG Urine Benzodiazepines Screen NEG Urine Cocaine Screen NEG Urine Cannabinoids Screen NEG Date/Time Source Procedure Growth Status 01/02/18 21:51 Blood Peripheral Aerobic Blood Culture Pending Received 01/02/18 21:51 Blood Peripheral Anaerobic Blood Culture Pending Received Result Diagram: 01/02/18215001/02/182150 Caprinmouna VTE Risk Assessment Clausrini VTE Risk Assessment: No/Low Risk (score <= 1) Caprini Risk Assessment Model Point Value = 1 Point Value = 2 Point Value = 3 Point Value = 5 Age 41-60 Minor surgery BMI > 25 kg/m2 Swollen legs Varicose veins or History of unexplained or recurrent spontaneous Oral contraceptives or hormone replacement Sepsis (< 1 month) Serious lung disease, including pneumonia (< 1 month) Abnormal pulmonary function Acute myocardial infarction Congestive heart failure (< 1 month) History of inflammatory bowel disease Medical patient at bed rest Age 61-74 Arthroscopic surgery Major open surgery (> 45 min) Laparoscopic surgery (> 45 min) Malignancy Confined to bed (> 72 hours) Immobilizing plaster cast Central venous access Age >= 75 History of VTE Family history of VTE Factor V Leiden Prothrombin [id number] Lupus anticoagulant Anticardiolipin antibodies Elevated serum homocysteine Heparin-induced thrombocytopenia Other congenital or acquired thrombophilia Stroke (< 1 month) Elective arthroplasty Hip, pelvis, or leg fracture Acute spinal cord injury (< 1 month) Prophylaxis Regimen Total Risk Factor Score Risk Level Prophylaxis Regimen 0-1 Low Early ambulation 2 Moderate Order ONE of the following: *Sequential Compression Device (SCD) *Heparin 5000 units SQ BID 3-4 Higher Order ONE of the following medications: *Heparin 5000 units SQ TID *Enoxaparin/Lovenox 40 mg SQ daily (WT < 150 kg, CrCl > 30 mL/min) *Enoxaparin/Lovenox 30 mg SQ daily (WT < 150 kg, CrCl > 10-29 mL/min) *Enoxaparin/Lovenox 30 mg SQ BID (WT < 150 kg, CrCl > 30 mL/min) AND/OR *Sequential Compression Device (SCD) 5 or more Highest Order ONE of the following medications: *Heparin 5000 units SQ TID (Preferred with Epidurals) *Enoxaparin/Lovenox 40 mg SQ daily (WT < 150 kg, CrCl > 30 mL/min) *Enoxaparin/Lovenox 30 mg SQ daily (WT < 150 kg, CrCl > 10-29 mL/min) *Enoxaparin/Lovenox 30 mg SQ BID (WT < 150 kg, CrCl > 30 mL/min) AND *Sequential Compression Device (SCD) Assessment and Plan Assessment and Plan //Sepsis //Right toe cellulitis = Leukocytosis of 19.8, tachycardia with heart rate in the 100s. = Lactate within normal limits -Blood cultures pending. = Oxycodone for pain control. -Infection having worsened on p.o. antibiotics today. X-ray this morning without signs of osteomyelitis, however given rapid worsening of infection on antibiotic, the fact that puncture is on the plantar surface of the toe, with erythema extending up on the dorsum of the foot, will workup for osteomyelitis. Consult podiatry. Placed on broad-spectrum antibiotics to cover MRSA and anaerobes. Consult ID due to patient requiring this infection in a mason. //Nausea vomiting //Ketones elevated on urinalysis. Likely secondary to nausea and vomiting. = IV fluids. Monitor. //Tobacco abuse. Cessation counseling provided. Discussed Condition With Patient, nurse, ED physician. Physician Certification 2 Midnight Certification Type: Admission for Inpatient Services Order for Inpatient Services The services are ordered in accordance with Medicare regulations or non- Medicare payer requirements, as applicable. In the case of services not specified as inpatient-only, they are appropriately provided as inpatient services in accordance with the 2-midnight benchmark. Estimated LOS (days): 3 days is the estimated time the patient will need to remain in the hospital, assuming treatment plan goals are met and no additional complications. Post-Hospital Plan: Home Tomer Alvarez MD January 03, 2018 00:21
[2018-01-03] MEDS ORDERED: IOHEXOL 350 MG/ML 10 ML VIAL (for RAD DIAG) IVCONTRAST ONE (01:54)
--- NOTE | 2018-01-03 02:32 | RADRPT ---
EXAM DATE/TIME: 01/03/2018 01:34 [facility] COMPARISON: No previous studies available for comparison. INDICATIONS : Right foot, first digit swelling and redness. IV CONTRAST: 100 cc Omnipaque 350 (iohexol) IV RADIATION DOSE: 7.29 CTDIvol (mGy) MEDICAL HISTORY : None SURGICAL HISTORY : None. ENCOUNTER: Initial ACUITY: 1 day PAIN SCALE: 10/10 LOCATION: Right foot. TECHNIQUE: Volumetric scanning of the foot was performed. Using automated exposure control and adjustment of th e mA and/or kV according to patient size, radiation dose was kept as low as reasonably achievable to obtain optimal diagnostic quality images. DICOM format image data is available electronically for re view and comparison. FINDINGS: BONES: No evidence of fracture. Alignment is within normal limits. JOINTS: No evidence of joint narrowing or effusion. SOFT TISSUES: Muscles, tendons, and neurovascular structures are grossly unremarkable. No evidence of mass, organiz ed fluid collection, or foreign body. CONCLUSION: Normal examination. Adelfo Mcadams MD on January 03, 2018 at 2:30 Board Certified Radiologist. This report was verified electronically.
[2018-01-03] MEDS: PIPERACIL-TAZO 4.5 GM PREMIX 100 ML IV SCH ×4 (05:16→22:48)
[2018-01-03 07:36] LABS: AUTOMATED NEUTROPHIL # 9.2 TH/MM3 (1.8-7.7); BASOPHIL % 0.1 % (0.0-2.0); EOSINOPHIL % 0.2 % (0.0-4.0); HEMATOCRIT 35.3 % (35.0-46.0); LYMPH % 17.2 % (9.0-44.0); LYMPHOCYTE # 2.1 TH/MM3 (1.0-4.8); MEAN CELL VOLUME 90.8 FL (80.0-100.0); MEAN CORPUSCULAR HEMOGLOBIN 30.8 PG (27.0-34.0); MEAN CORPUSCULAR HGB CONC 33.9 % (32.0-36.0); MONO % 7.4 % (0.0-8.0); MONOCYTE # 0.9 TH/MM3 (0-0.9); NEUT % 75.1 % (16.0-70.0); PLATELET COUNT 190 TH/MM3 (150-450); RED BLOOD COUNT 3.88 MIL/MM3 (4.00-5.30); RED CELL DISTRIBUTION WIDTH 13.2 % (11.6-17.2); WHITE BLOOD COUNT 12.3 TH/MM3 (4.0-11.0)
[2018-01-03] MEDS: SODIUM CHLORIDE 0.9% FLUSH 10 ML FLUSH IV FLUSH SCH ×2 (07:43→21:00)
[2018-01-03 07:58] LABS: ALBUMIN 2.9 GM/DL (3.4-5.0); ALKALINE PHOSPHATASE 52 U/L (45-117); ALT (GPT) 40 U/L (10-53); AST (GOT) 17 U/L (15-37); BICARBONATE 22.1 MEQ/L (21.0-32.0); BLOOD UREA NITROGEN 9 MG/DL (7-18); CALCIUM 7.6 MG/DL (8.5-10.1); CHLORIDE 110 MEQ/L (98-107); CREATININE 0.68 MG/DL (0.50-1.00); GLOMERULAR FILTRATION RATE 105 ML/MIN (>89); GLUCOSE,RANDOM 84 MG/DL (74-106); SODIUM (NA) 140 MEQ/L (136-145); TOTAL BILIRUBIN ADULT 0.5 MG/DL (0.2-1.0); TOTAL PROTEIN 5.7 GM/DL (6.4-8.2)
[2018-01-03] MEDS: SODIUM CHLOR 0.9% 1000 ML INJ 1,000 ML IV SCH ×2 (08:33→10:41)
[2018-01-03] MEDS: oxyCODONE/ACETAMINOPHEN 10 MG/325 MG TAB PO PRN ×3 (08:42→22:48)
[2018-01-03] MEDS: VANCOMYCIN 1,000 MG/NS 250 ML IV SCH ×4 (09:17→22:48)
--- NOTE | 2018-01-03 10:28 | HHI.PR ---
Subjective Remarks No nausea vomiting since last night. Patient says that the redness is much improved, says he was originally up to her ankles and her shins, now the redness is just localized to the foot but says that the foot itself is slightly more edematous compared to yesterday. Objective Vital Signs Date Time Temp Pulse Resp B/P (MAP) Pulse Ox O2 Delivery O2 Flow Rate FiO2 01/03/18 04:00 98.4 82 19 98/54 (69) 98 01/03/18 04:00 79 01/03/18 01:40 98.8 88 16 93/57 (69) 99 01/02/18 23:09 101 16 103/53 (70) 100 Room Air 01/02/18 22:00 105 18 107/55 (72) 99 Room Air 01/02/18 21:55 86 18 107/55 (72) 100 Room Air 01/02/18 19:49 99.2 115 18 116/64 (81) 95 I/O 01/02/18 01/02/18 01/02/18 01/03/18 01/03/18 01/03/18 07:00 15:00 23:00 07:00 15:00 23:00 Intake Total 2490 ml Balance 2490 ml Intake Oral 240 ml IV Total 2250 ml # Voids 2 Result Diagram: 01/03/18 0550 01/03/18 0550 Objective Remarks Exquisitely tender to palpation left MTP joint and left toe, patient withholds active flexion secondary to pain. Puncture site evident on plantar aspect of left great toe, no pus noted, erythema extending globally over entire left great toe as well as over the MTP joint A/P Assessment and Plan //Sepsis //Right toe cellulitis = Leukocytosis improving -Blood cultures pending. = Oxycodone for pain control. -Despite negative CT, history is very convincing for a refractory foot infection , at least soft tissue if not osteomyelitis. Pending podiatry and infectious disease consultations., Continue antibiotics. //Nausea vomiting //Ketones elevated on urinalysis. Likely secondary to nausea and vomiting. = IV fluids. Monitor. Ancelmo Fatima MD January 03, 2018 10:28
--- NOTE | 2018-01-03 13:21 | PD.CONS ---
History of Present Illness Service Infectious disease Consult Requested By Dr. Bebe Alvarez Reason for Consult Evaluate patient with infection of the right foot Primary Care Physician No Primary Care Physician Diagnoses: History of Present Illness Patient seen and examined. Records reviewed. Patient is a 27-year-old female, who sustained a wound on her right big toe on January 01 while working on a mason. She was not sure what she stepped on but there was a lot of stagnant water and plans on the leg. On January 02 she presented to the hospital complaining of pain and swelling on her right big toe. She apparently had some leftover antibiotic and she took a dose on January 01. In the ED she got a dose of antibiotics, and she was given a prescription for Augmentin and clindamycin. Patient however has not started taking it, and she started having nausea and vomiting. She could not keep anything down, and because of the persistent problem also with her right foot she presented back to the hospital and has been admitted. She had noted that the redness on the foot started spreading on the top of her toe going up to the distal right leg. She had some low-grade fevers. Her WBC on admission was 19,000. She has been afebrile. Imaging studies did not show any foreign body, or any osteomyelitis. Her WBC is down to 12,000. Patient has been on vancomycin and Zosyn. She denies any abdominal pain or any urinary complaint. Denies any respiratory complaint. Infectious disease consultation has been requested to evaluate the patient. Review of Systems Constitutional: DENIES: Fever, Chills Eyes: DENIES: Eye pain Ears, nose, mouth, throat: DENIES: Nasal discharge, Oral lesions, Throat pain, Hoarseness, Ear Pain, Sinus Pain Respiratory: DENIES: Cough, Shortness of breath Cardiovascular: DENIES: Chest pain, Palpitations, Dyspnea on Exertion, Lower Extremity Edema Gastrointestinal: DENIES: Abdominal pain, Constipation, Diarrhea, Nausea, Vomiting, Difficulty Swallowing Genitourinary: DENIES: Urinary frequency, Urgency, Dysuria Musculoskeletal: COMPLAINS OF: Joint pain, Joint Swelling, DENIES: Neck pain Integumentary: DENIES: Pruritus, Rash Hematologic/lymphatic: DENIES: Lymphadenopathy Neurologic: DENIES: Headache, Localized weakness Psychiatric: DENIES: Hallucinations Past Family Social History Allergies: Coded Allergies: No Known Allergies (Unverified , 01/02/18) Past Medical History Unremarkable Past Surgical History Appendectomy. Dilation and curettage Active Ordered Medications Vancomycin Zosyn Current Medications Medications (Trade) Dose Ordered Sig/George Route Start Time Stop Time Status Last Admin Pharmacy Profile Note 0 ml @ 0 mls/hr UNSCH OTHER 01/02/18 23:00 Piperacillin Sod/ Tazobactam Sod 100 ml @ 200 mls/hr Q6H IV 01/02/18 23:00 01/03/18 10:41 Sodium Chloride 1,000 ml @ 100 mls/hr Q10H IV 01/02/18 22:54 01/03/18 10:41 (NS Flush) 2 ml UNSCH PRN IV FLUSH 01/02/18 23:00 (NS Flush) 2 ml BID IV FLUSH 01/03/18 09:00 01/03/18 07:43 (Zofran Inj) 4 mg Q6H PRN IVP 01/02/18 23:00 (Milk Of Magnesia Liq) 30 ml Q12H PRN PO 01/02/18 23:00 (Senokot) 17.2 mg Q12H PRN PO 01/02/18 23:00 (Dulcolax Supp) 10 mg DAILY PRN RECTAL 01/02/18 23:00 (Lactulose Liq) 30 ml DAILY PRN PO 01/02/18 23:00 Vancomycin HCl 1000 mg/Sodium Chloride 250 ml @ 250 mls/hr Q12H IV 01/03/18 10:00 01/03/18 09:17 ([facility] Ordered Lab Info) SPECIFIC LAB TO BE DRAWN:VANCO TROUGH DATE TO BE DR... ONCE ONCE .XX 01/04/18 09:45 01/04/18 09:46 (Percocet 5-325 Mg) 1 tab Q6H PRN PO 01/03/18 00:00 (Percocet 10-325 Mg) 1 tab Q6H PRN PO 01/03/18 00:00 01/03/18 08:42 (Morphine Inj) 4 mg Q3H PRN IV PUSH 01/02/18 23:45 01/03/18 05:25 (Narcan Inj) 0.4 mg UNSCH PRN IV PUSH 01/03/18 00:00 Family History Noncontributory Social History Patient smokes one half pack per day for the past 10 years. Denies drinking. History of polysubstance abuse. Physical Exam Vital Signs Vital Signs Date Time Temp Pulse Resp B/P (MAP) Pulse Ox O2 Delivery O2 Flow Rate FiO2 01/03/18 12:00 98.0 78 20 109/51 (70) 100 01/03/18 08:00 99.0 83 20 107/56 (73) 95 01/03/18 04:00 98.4 82 19 98/54 (69) 98 01/03/18 04:00 79 01/03/18 01:40 98.8 88 16 93/57 (69) 99 01/02/18 23:09 101 16 103/53 (70) 100 Room Air 01/02/18 22:00 105 18 107/55 (72) 99 Room Air 01/02/18 21:55 86 18 107/55 (72) 100 Room Air 01/02/18 19:49 99.2 115 18 116/64 (81) 95 Physical Exam GENERAL: Patient is a well-nourished, well-developed female, awake and alert , not in respiratory distress. SKIN: Warm and dry. No generalized rash, no ecchymoses and no evidence of embolic lesions. HEAD: Atraumatic. Normocephalic. No temporal wasting, or tenderness. EYES: Ney conjunctiva. No petechia or hemorrhage. Pupils equal, round and reactive to light. Extraocular movements full and intact. No scleral icterus. No injection or drainage. EARS, NOSE AND THROAT: Nose without bleeding or purulent nasal discharge. No sinus tenderness. Mucous membranes pink and moist. No oral lesions noted. No exudate. No oral thrush. NECK: Trachea midline. Supple and not tender, no meningeal signs CARDIOVASCULAR: Regular rate and rhythm. No murmurs, rubs or gallops heard RESPIRATORY: Clear to auscultation. Breath sounds equal bilaterally. No rales , wheezing or rhonchi ABDOMEN: Soft, non-tender, nondistended. Bowel sounds present and normoactive. No guarding. No rebound. No organomegaly. EXTREMITIES: No clubbing, cyanosis, or edema. R foot: has swollen and red big toe, and with punture wound on plantar aspect, black color, and there is redness on plantar aspect along the MT bone, tender to palpation. Mild erythema on dorsum of R foot over the MT. No calf tenderness. Well perfused and warm. NEUROLOGICAL: Awake and alert. Cranial nerves grossly intact. Motor grossly within normal limits. PSYCHIATRIC: Normal affect, calm and cooperative. LINE: No evidence of infection Laboratory Laboratory Tests Test 01/02/18 21:51 01/02/18 23:06 01/03/18 05:50 White Blood Count 19.8 12.3 Red Blood Count 4.54 3.88 Hemoglobin 13.7 12.0 Hematocrit 40.7 35.3 Mean Corpuscular Volume 89.7 90.8 Mean Corpuscular Hemoglobin 30.2 30.8 Mean Corpuscular Hemoglobin Concent 33.7 33.9 Red Cell Distribution Width 12.8 13.2 Platelet Count 270 190 Mean Platelet Volume 8.8 9.0 Neutrophils (%) (Auto) 92.5 75.1 Lymphocytes (%) (Auto) 4.7 17.2 Monocytes (%) (Auto) 2.7 7.4 Eosinophils (%) (Auto) 0.0 0.2 Basophils (%) (Auto) 0.1 0.1 Neutrophils # (Auto) 18.3 9.2 Lymphocytes # (Auto) 0.9 2.1 Monocytes # (Auto) 0.5 0.9 Eosinophils # (Auto) 0.0 0.0 Basophils # (Auto) 0.0 0.0 CBC Comment DIFF FINAL DIFF FINAL Differential Comment Erythrocyte Sedimentation Rate 7 Blood Urea Nitrogen 14 9 Creatinine 0.85 0.68 Random Glucose 89 84 Total Protein 7.8 5.7 Albumin 4.0 2.9 Calcium Level 9.1 7.6 Alkaline Phosphatase 71 52 Aspartate Amino Transf (AST/SGOT) 37 17 Alanine Aminotransferase (ALT/SGPT) 62 40 Total Bilirubin 0.7 0.5 Sodium Level 138 140 Potassium Level 4.2 3.6 Chloride Level 106 110 Carbon Dioxide Level 24.1 22.1 Anion Gap 8 8 Estimat Glomerular Filtration Rate 81 105 Lactic Acid Level 0.9 Human Chorionic Gonadotropin, Quant 2 Urine Color YELLOW Urine Turbidity HAZY Urine pH 6.5 Urine Specific [place] 1.021 Urine Protein TRACE Urine Glucose (UA) NEG Urine Ketones 80 Urine Occult Blood NEG Urine Nitrite NEG Urine Bilirubin NEG Urine Urobilinogen LESS THAN 2.0 Urine Leukocyte Esterase NEG Urine RBC 1 Urine WBC 3 Urine Squamous Epithelial Cells 11 Urine Renal Epithelial Cells <1 Urine Mucus FEW Microscopic Urinalysis Comment CATH-CULT NOT IND Urine Opiates Screen NEG Urine Barbiturates Screen NEG Urine Amphetamines Screen NEG Urine Benzodiazepines Screen NEG Urine Cocaine Screen NEG Urine Cannabinoids Screen NEG Uric Acid 2.8 C-Reactive Protein 2.50 Date/Time Source Procedure Growth Status 01/02/18 21:51 Blood Peripheral Aerobic Blood Culture - Preliminary NO GROWTH IN 1 DAY Resulted 01/02/18 21:51 Blood Peripheral Anaerobic Blood Culture - Preliminary NO GROWTH IN 1 DAY Resulted Result Diagram: 01/03/18 0550 01/03/18 0550 Imaging Last Impressions Lower Extremity CT 01/02/18 0000 Signed Impressions: Service Date/Time: Wednesday, January 03, 2018 01:34 - CONCLUSION: Normal examination. Adelfo Mcadams MD Assessment and Plan Assessment and Plan IMPRESSION Cellulitis R foot/R big toe with puncture wound - ?deeper infection, ?joint, no abscess on CT RECOMMENDATION MRI R foot Podiatry consult Continue Vanco Continue Zosyn Monitor progress and response to Rx Will determine course of Rx depending on results of work-up I will follow along with you Thank you for this consultation Discussed Condition With Explained plan to the patient and mother Stephanie Fowler MD January 03, 2018 13:20
[2018-01-03] MEDS ORDERED: GADODIAMIDE PF 287 MG/ML 5 ML VIAL (for RAD MRI) IV PUSH ONE (16:52)
--- NOTE | 2018-01-03 17:20 | RADRPT ---
EXAM DATE/TIME: 01/03/2018 16:12 [facility] COMPARISON: CT FOOT RIGHT W CONTRAST, January 03, 2018, 1:34. INDICATIONS : Abscess. Right great toe red and swelling since Monday. Wound on plantar surface. CONTRAST: 12 cc Omniscan (gadodiamide) IV MEDICAL HISTORY : None. SURGICAL HISTORY : Appendectomy. D and C. ENCOUNTER: Initial ACUITY: 4-6 days PAIN SCORE: 4/10 LOCATION: Right foot TECHNIQUE: Multiplanar, multisequence MRI examination was performed without contrast and after the intravenous a dministration of gadolinium. FINDINGS: There is a skin defect in the plantar aspect of the gre the foot is elsewhere grossly unremarkable. a t toe at the level of the interphalangeal joint medially. There is signal void in some apparent susce ptibility in it is unclear if this is related to foreign material or packing material. Correlation is recommended. There is no evidence of discrete collection to suggest abscess. There is abnormal marro w signal present in the distal aspect of the proximal phalanx which would be consistent with osteomye litis. There is no evidence of joint effusion. CONCLUSION: Findings consistent with great toe osteomyelitis. Soft tissue changes mainly in the plantar region co nsistent with cellulitis. No clear abscess. Luis Eduardo Edwards MD on January 03, 2018 at 17:11 Board Certified Radiologist. This report was verified electronically.
[2018-01-03] MEDS ORDERED: ONDANSETRON ODT 4 MG TAB SL PRN (22:45)
[2018-01-04] VITALS (8 sets, daily range): BP systolic 100–146; BP diastolic 55–76; PULSE 72–100; RESP 16–20; TEMP 97.8–98.6; O2SAT 96–100
--- NOTE | 2018-01-04 00:55 | PD.CONS ---
History of Present Illness Service Foot and Ankle/Podiatry Consult Requested By Reason for Consult Right hallux wound, right hallux OM Primary Care Physician No Primary Care Physician Diagnoses: History of Present Illness Patient seen 01/03/18. Podiatry consulted for this 27 year old female for right hallux OM noted on MRI secondary to puncture wound 01/01/18. Patient states she waded into water where there was estrella block and she is unsure what she stepped on but immediately felt pain and left the water. She was seen in the ED Monday and given oral antibiotics. She returned to the ED today with vomiting 10xs. She noted ascending redness to her and became concerned. WBC on admission is 19, 000 and has trended down to 12,000. Denies N,V,F,Ch at this time. Review of Systems Constitutional: COMPLAINS OF: Fever, DENIES: Fatigue Ears, nose, mouth, throat: DENIES: Hearing loss Respiratory: DENIES: Cough, Shortness of breath Cardiovascular: DENIES: Chest pain, Palpitations Gastrointestinal: COMPLAINS OF: Nausea, Vomiting, DENIES: Abdominal pain, Diarrhea Musculoskeletal: DENIES: Joint pain Integumentary: DENIES: Abnormal pigmentation Psychiatric: DENIES: Anxiety, Confusion Past Family Social History Allergies: Coded Allergies: No Known Allergies (Unverified , 01/02/18) Past Surgical History Reports surgical intervention recently D&C Active Ordered Medications Current Medications Medications (Trade) Dose Ordered Sig/George Route Start Time Stop Time Status Last Admin Pharmacy Profile Note 0 ml @ 0 mls/hr UNSCH OTHER 01/02/18 23:00 Piperacillin Sod/ Tazobactam Sod 100 ml @ 200 mls/hr Q6H IV 01/02/18 23:00 01/03/18 22:48 Sodium Chloride 1,000 ml @ 100 mls/hr Q10H IV 01/02/18 22:54 01/03/18 10:41 (NS Flush) 2 ml UNSCH PRN IV FLUSH 01/02/18 23:00 (NS Flush) 2 ml BID IV FLUSH 01/03/18 09:00 01/03/18 07:43 (Milk Of Magnesia Liq) 30 ml Q12H PRN PO 01/02/18 23:00 (Senokot) 17.2 mg Q12H PRN PO 01/02/18 23:00 (Dulcolax Supp) 10 mg DAILY PRN RECTAL 01/02/18 23:00 (Lactulose Liq) 30 ml DAILY PRN PO 01/02/18 23:00 Vancomycin HCl 1000 mg/Sodium Chloride 250 ml @ 250 mls/hr Q12H IV 01/03/18 10:00 01/03/18 22:48 ([facility] [place] [facility] Ordered Lab Info) SPECIFIC LAB TO BE DRAWN:VANCO TROUGH DATE TO BE DR... ONCE ONCE .XX 01/04/18 09:45 01/04/18 09:46 (Percocet 5-325 Mg) 1 tab Q6H PRN PO 01/03/18 00:00 (Percocet 10-325 Mg) 1 tab Q6H PRN PO 01/03/18 00:00 01/03/18 22:48 (Morphine Inj) 4 mg Q3H PRN IV PUSH 01/02/18 23:45 01/03/18 05:25 (Narcan Inj) 0.4 mg UNSCH PRN IV PUSH 01/03/18 00:00 (Zofran Odt) 4 mg Q6H PRN SL 01/03/18 22:45 Physical Exam Vital Signs Vital Signs Date Time Temp Pulse Resp B/P (MAP) Pulse Ox O2 Delivery O2 Flow Rate FiO2 01/03/18 23:48 16 01/03/18 20:00 99.0 99 18 135/61 (85) 98 01/03/18 16:00 98.3 96 20 107/67 (80) 100 01/03/18 15:38 78 01/03/18 12:00 98.0 78 20 109/51 (70) 100 01/03/18 11:41 93 01/03/18 08:00 99.0 83 20 107/56 (73) 95 01/03/18 07:38 81 01/03/18 04:00 98.4 82 19 98/54 (69) 98 01/03/18 04:00 79 01/03/18 01:40 98.8 88 16 93/57 (69) 99 Physical Exam GENERAL: This is a well-nourished, well-developed patient, in no apparent distress. SKIN: Increased erythema noted to right hallux with plantar hallux wound HEAD: Atraumatic. EYES: Pupils equal round and reactive. ENT: Airway patent. NECK: Trachea midline. RESPIRATORY: Nonlabored breathing. MUSCULOSKELETAL:. Negative Homans sign bilaterally. NEUROLOGICAL: Awake and alert. Normal speech. Lower extremity physical exam: Vascular: Dorsalis pedis palpable, posterior tibial palpable. Capillary refill time within normal limits to digits x5 bilateral foot. Edema present right hallux/right foot Neuro: Gross sensation intact to bilateral lower extremity. Pinpoint sensation intact. No hyperalgesia noted to bilateral lower extremity Dermatology: Increased edema, erythema noted to right hallux with ascending erythema noted to the right first MPJ. Plantar hallux wound with hyperkeratotic wound edges. Induration noted to right hallux, no fluctuance noted. Musculoskeletal: Tender to palpation to right hallux. Laboratory Laboratory Tests Test 01/03/18 05:50 White Blood Count 12.3 Red Blood Count 3.88 Hemoglobin 12.0 Hematocrit 35.3 Mean Corpuscular Volume 90.8 Mean Corpuscular Hemoglobin 30.8 Mean Corpuscular Hemoglobin Concent 33.9 Red Cell Distribution Width 13.2 Platelet Count 190 Mean Platelet Volume 9.0 Neutrophils (%) (Auto) 75.1 Lymphocytes (%) (Auto) 17.2 Monocytes (%) (Auto) 7.4 Eosinophils (%) (Auto) 0.2 Basophils (%) (Auto) 0.1 Neutrophils # (Auto) 9.2 Lymphocytes # (Auto) 2.1 Monocytes # (Auto) 0.9 Eosinophils # (Auto) 0.0 Basophils # (Auto) 0.0 CBC Comment DIFF FINAL Differential Comment Blood Urea Nitrogen 9 Creatinine 0.68 Random Glucose 84 Total Protein 5.7 Albumin 2.9 Calcium Level 7.6 Alkaline Phosphatase 52 Aspartate Amino Transf (AST/SGOT) 17 Alanine Aminotransferase (ALT/SGPT) 40 Total Bilirubin 0.5 Sodium Level 140 Potassium Level 3.6 Chloride Level 110 Carbon Dioxide Level 22.1 Anion Gap 8 Estimat Glomerular Filtration Rate 105 Uric Acid 2.8 C-Reactive Protein 2.50 Date/Time Source Procedure Growth Status 01/02/18 21:51 Blood Peripheral Aerobic Blood Culture - Preliminary NO GROWTH IN 1 DAY Resulted 01/02/18 21:51 Blood Peripheral Anaerobic Blood Culture - Preliminary NO GROWTH IN 1 DAY Resulted Result Diagram: 01/03/18 0550 01/03/18 0550 Imaging Last Impressions Foot MRI 01/03/18 0000 Signed Impressions: Service Date/Time: Wednesday, January 03, 2018 16:12 - CONCLUSION: Findings consistent with great toe osteomyelitis. Soft tissue changes mainly in the plantar region consistent with cellulitis. No clear abscess. Luis Eduardo Edwards MD Lower Extremity CT 01/02/18 0000 Signed Impressions: Service Date/Time: Wednesday, January 03, 2018 01:34 - CONCLUSION: Normal examination. Adelfo Mcadams MD Assessment and Plan Assessment and Plan 27 year old female with right hallux OM noted on MRI Patient examined and evaluated with all questions answered Discussed with patient findings on MRI consistent with OM Patient to cont IV abx per ID Will obtain bone biopsy to right hallux Debridement, I&D to right hallux bedside Please obtain consent and have supplies bedside Sofie New DPM January 04, 2018 00:55
[2018-01-04] MEDS: SODIUM CHLOR 0.9% 1000 ML INJ 1,000 ML IV SCH ×2 (04:54→14:54)
[2018-01-04] MEDS ORDERED: LIDOCAINE HCL 1% 10 ML VIAL OTHER PRN (05:45)
[2018-01-04] MEDS: PIPERACIL-TAZO 4.5 GM PREMIX 100 ML IV SCH ×4 (06:34→23:17)
[2018-01-04] MEDS: oxyCODONE/ACETAMINOPHEN 10 MG/325 MG TAB PO PRN ×2 (06:45→17:24)
[2018-01-04] MEDS: SODIUM CHLORIDE 0.9% FLUSH 10 ML FLUSH IV FLUSH SCH ×2 (09:18→20:09)
[2018-01-04] MEDS ORDERED: PHARMACY ORDERED LAB ONE (09:45)
[2018-01-04] MEDS: VANCOMYCIN 1,000 MG/NS 250 ML IV SCH ×2 (10:45)
--- NOTE | 2018-01-04 11:23 | HHI.PR ---
Subjective Remarks Nursing denies any deterioration since last night. Patient says her pain is somewhat better since yesterday. Thinks the swelling still there. Objective Vital Signs Date Time Temp Pulse Resp B/P (MAP) Pulse Ox O2 Delivery O2 Flow Rate FiO2 01/04/18 08:00 82 01/04/18 08:00 98.5 82 16 111/62 (78) 96 01/04/18 04:00 97.8 88 20 113/55 (74) 98 01/04/18 04:00 72 01/04/18 00:00 88 01/04/18 00:00 98.6 82 20 105/67 (80) 98 01/03/18 23:48 16 01/03/18 20:00 89 01/03/18 20:00 99.0 99 18 135/61 (85) 98 01/03/18 16:00 98.3 96 20 107/67 (80) 100 01/03/18 15:38 78 01/03/18 12:00 98.0 78 20 109/51 (70) 100 01/03/18 11:41 93 I/O 01/03/18 01/03/18 01/03/18 01/04/18 01/04/18 01/04/18 07:00 15:00 23:00 07:00 15:00 23:00 Intake Total 2490 ml 350 ml 240 ml 480 ml Balance 2490 ml 350 ml 240 ml 480 ml Intake Oral 240 ml 240 ml 480 ml IV Total 2250 ml 350 ml # Voids 2 4 3 # Bowel Movements 0 0 Result Diagram: 01/03/18 0550 01/03/18 0550 Objective Remarks Exquisitely tender to palpation left MTP joint and left toe, patient withholds active flexion secondary to pain. - unchanged from yesterday. no significant edema A/P Assessment and Plan //Sepsis //Right toe cellulitis = Leukocytosis improving - Blood cultures negative. = Oxycodone for pain control. -Continue antibiotics per infectious disease, MRI findings possibly compatible with osteomyelitis. Podiatry will perform bedside bone biopsy and incision and drainage today. //Nausea vomiting Resolved Ancelmo Fatima MD January 04, 2018 11:23
--- NOTE | 2018-01-04 13:40 | HHI.IDPN ---
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 She was not sure what she stepped on but there was a lot of stagnant water and plans on the leg. On January 02 she presented to the hospital complaining of pain and swelling on her right big toe. She apparently had some leftover antibiotic and she took a dose on January 01. In the ED she got a dose of antibiotics, and she was given a prescription for Augmentin and clindamycin. Patient however has not started taking it, and she started having nausea and vomiting. She could not keep anything down, and because of the persistent problem also with her right foot she presented back to the hospital and has been admitted. She had noted that the redness on the foot started spreading on the top of her toe going up to the distal right leg. She had some low-grade fevers. Her WBC on admission was 19,000. She has been afebrile. Imaging studies did not show any foreign body, or any osteomyelitis. Her WBC is down to 12,000. Patient has been on vancomycin and Zosyn. She denies any abdominal pain or any urinary complaint. Denies any respiratory complaint. Infectious disease consultation has been requested to evaluate the patient Notes reviewed Temps ok MRI with osteo R big toe Podiatry notes reviewed Plan for bone biopsy noted ESR only 7 CRP 2.5 Antibiotics Vancomycin Zosyn Current Medications Medications (Trade) Dose Ordered Sig/George Route Start Time Stop Time Status Last Admin Pharmacy Profile Note 0 ml @ 0 mls/hr UNSCH OTHER 01/02/18 23:00 Piperacillin Sod/ Tazobactam Sod 100 ml @ 200 mls/hr Q6H IV 01/02/18 23:00 01/04/18 11:53 Sodium Chloride 1,000 ml @ 100 mls/hr Q10H IV 01/02/18 22:54 01/04/18 04:54 (NS Flush) 2 ml UNSCH PRN IV FLUSH 01/02/18 23:00 (NS Flush) 2 ml BID IV FLUSH 01/03/18 09:00 01/04/18 09:18 (Milk Of Magnesia Liq) 30 ml Q12H PRN PO 01/02/18 23:00 (Senokot) 17.2 mg Q12H PRN PO 01/02/18 23:00 (Dulcolax Supp) 10 mg DAILY PRN RECTAL 01/02/18 23:00 (Lactulose Liq) 30 ml DAILY PRN PO 01/02/18 23:00 (Percocet 5-325 Mg) 1 tab Q6H PRN PO 01/03/18 00:00 (Percocet 10-325 Mg) 1 tab Q6H PRN PO 01/03/18 00:00 01/04/18 06:45 (Morphine Inj) 4 mg Q3H PRN IV PUSH 01/02/18 23:45 01/03/18 05:25 (Narcan Inj) 0.4 mg UNSCH PRN IV PUSH 01/03/18 00:00 (Zofran Odt) 4 mg Q6H PRN SL 01/03/18 22:45 (Xylocaine 1% Inj) 20 ml UNSCH X1 PRN OTHER 01/04/18 05:45 01/05/18 05:44 Vancomycin HCl 1250 mg/Sodium Chloride 262.5 ml @ 250 mls/hr Q12H IV 01/04/18 21:00 ([facility] [place] [facility] Ordered Lab Info) SPECIFIC LAB TO BE DRAWN:VANCOMYCIN TROUGH DATE TO... ONCE ONCE .XX 01/06/18 09:45 01/06/18 09:46 Lines No evidence of infection Past Medical History Appy D and C Allergies: Coded Allergies: No Known Allergies (Unverified , 01/02/18) Objective . Vital Signs Date Time Temp Pulse Resp B/P (MAP) Pulse Ox O2 Delivery O2 Flow Rate FiO2 01/04/18 12:00 98.0 86 16 118/76 (90) 98 01/04/18 08:00 82 01/04/18 08:00 98.5 82 16 111/62 (78) 96 01/04/18 04:00 97.8 88 20 113/55 (74) 98 01/04/18 04:00 72 01/04/18 00:00 88 01/04/18 00:00 98.6 82 20 105/67 (80) 98 01/03/18 23:48 16 01/03/18 20:00 89 01/03/18 20:00 99.0 99 18 135/61 (85) 98 01/03/18 16:00 98.3 96 20 107/67 (80) 100 5/9/18 15:38 78 . Laboratory Tests Test 01/02/18 21:51 01/03/18 05:50 White Blood Count 19.8 TH/MM3 12.3 TH/MM3 Red Blood Count 4.54 MIL/MM3 3.88 MIL/MM3 Hemoglobin 13.7 GM/DL 12.0 GM/DL Hematocrit 40.7 % 35.3 % Mean Corpuscular Volume 89.7 FL 90.8 FL Mean Corpuscular Hemoglobin 30.2 PG 30.8 PG Mean Corpuscular Hemoglobin Concent 33.7 % 33.9 % Red Cell Distribution Width 12.8 % 13.2 % Platelet Count 270 TH/MM3 190 TH/MM3 Mean Platelet Volume 8.8 FL 9.0 FL Neutrophils (%) (Auto) 92.5 % 75.1 % Lymphocytes (%) (Auto) 4.7 % 17.2 % Monocytes (%) (Auto) 2.7 % 7.4 % Eosinophils (%) (Auto) 0.0 % 0.2 % Basophils (%) (Auto) 0.1 % 0.1 % Neutrophils # (Auto) 18.3 TH/MM3 9.2 TH/MM3 Lymphocytes # (Auto) 0.9 TH/MM3 2.1 TH/MM3 Monocytes # (Auto) 0.5 TH/MM3 0.9 TH/MM3 Eosinophils # (Auto) 0.0 TH/MM3 0.0 TH/MM3 Basophils # (Auto) 0.0 TH/MM3 0.0 TH/MM3 CBC Comment DIFF FINAL DIFF FINAL Differential Comment Erythrocyte Sedimentation Rate 7 mm/hr Laboratory Tests Test 01/02/18 21:51 01/03/18 05:50 Blood Urea Nitrogen 14 MG/DL 9 MG/DL Creatinine 0.85 MG/DL 0.68 MG/DL Random Glucose 89 MG/DL 84 MG/DL Total Protein 7.8 GM/DL 5.7 GM/DL Albumin 4.0 GM/DL 2.9 GM/DL Calcium Level 9.1 MG/DL 7.6 MG/DL Alkaline Phosphatase 71 U/L 52 U/L Aspartate Amino Transf (AST/SGOT) 37 U/L 17 U/L Alanine Aminotransferase (ALT/SGPT) 62 U/L 40 U/L Total Bilirubin 0.7 MG/DL 0.5 MG/DL Sodium Level 138 MEQ/L 140 MEQ/L Potassium Level 4.2 MEQ/L 3.6 MEQ/L Chloride Level 106 MEQ/L 110 MEQ/L Carbon Dioxide Level 24.1 MEQ/L 22.1 MEQ/L Anion Gap 8 MEQ/L 8 MEQ/L Estimat Glomerular Filtration Rate 81 ML/MIN 105 ML/MIN Lactic Acid Level 0.9 mmol/L Human Chorionic Gonadotropin, Quant 2 MIU/ML Uric Acid 2.8 MG/DL C-Reactive Protein 2.50 MG/DL Microbiology Date/Time Source Procedure Growth Status 01/02/18 21:51 Blood Peripheral Aerobic Blood Culture - Preliminary NO GROWTH IN 2 DAYS Resulted 01/02/18 21:51 Blood Peripheral Anaerobic Blood Culture - Preliminary NO GROWTH IN 2 DAYS Resulted 01/02/18 21:40 Blood Peripheral Aerobic Blood Culture - Preliminary NO GROWTH IN 2 DAYS Resulted 01/02/18 21:40 Blood Peripheral Anaerobic Blood Culture - Preliminary NO GROWTH IN 2 DAYS Resulted Imaging Last Impressions Foot MRI 01/03/18 0000 Signed Impressions: Service Date/Time: Wednesday, January 03, 2018 16:12 - CONCLUSION: Findings consistent with great toe osteomyelitis. Soft tissue changes mainly in the plantar region consistent with cellulitis. No clear abscess. Luis Eduardo Edwards MD Lower Extremity CT 01/02/18 0000 Signed Impressions: Service Date/Time: Wednesday, January 03, 2018 01:34 - CONCLUSION: Normal examination. Adelfo Mcadams MD Physical Exam GENERAL: awake and alert, not in respiratory distress. SKIN: Warm and dry. No generalized rash, no ecchymoses and no evidence of embolic lesions. HEAD: Atraumatic. Normocephalic. No temporal wasting, or tenderness. EYES: Mcconnico conjunctiva. No petechia or hemorrhage. Pupils equal, round and reactive to light. Extraocular movements full and intact. No scleral icterus. No injection or drainage. EARS, NOSE AND THROAT: Nose without bleeding or purulent nasal discharge. No sinus tenderness. Mucous membranes pink and moist. No oral lesions noted. No exudate. No oral thrush. NECK: Trachea midline. Supple and not tender, no meningeal signs CARDIOVASCULAR: Regular rate and rhythm. No murmurs, rubs or gallops heard RESPIRATORY: Clear to auscultation. Breath sounds equal bilaterally. No rales , wheezing or rhonchi ABDOMEN: Soft, non-tender, nondistended. Bowel sounds present and normoactive. No guarding. No rebound. No organomegaly. EXTREMITIES: No clubbing, cyanosis, or edema. R foot: has swollen and red big toe, and with punture wound on plantar aspect, black color, and there is redness on plantar aspect along the MT bone, tender to palpation. Mild erythema on dorsum of R foot over the MT. No calf tenderness. Well perfused and warm. NEUROLOGICAL: Awake and alert. Cranial nerves grossly intact. Motor grossly within normal limits. PSYCHIATRIC: Normal affect, calm and cooperative. LINE: No evidence of infection Assessment & Plan Remarks IMPRESSION Cellulitis R foot/R big toe with puncture wound Osteo R big toe RECOMMENDATION Continue Vanco Continue Zosyn Podiatry to do bone biopsy Monitor progress and response to Rx Will determine course of Rx depending on results of work-up Explained plan to the patient Stephanie Fowler MD January 04, 2018 13:40
[2018-01-04] MEDS ORDERED: HYDROmorphone HCL PF 0.5 MG/0.5 ML SYRINGE IV ONE (20:00)
[2018-01-04] MEDS: VANCOMYCIN INJ 1,250 MG in SODIUM CHLOR 0.9% 250 ML INJ 250 ML IV SCH (20:09)
--- NOTE | 2018-01-04 22:41 | HHI.PR ---
Subjective Remarks Seen bedside with sponsor and boyfriend. Continued pain. States she has noticed improvement. Objective Vital Signs Date Time Temp Pulse Resp B/P (MAP) Pulse Ox O2 Delivery O2 Flow Rate FiO2 01/04/18 21:00 98.2 73 16 146/63 (90) 100 01/04/18 16:00 98.1 80 16 120/76 (91) 98 01/04/18 16:00 83 01/04/18 12:00 87 01/04/18 12:00 98.0 86 16 118/76 (90) 98 01/04/18 08:00 82 01/04/18 08:00 98.5 82 16 111/62 (78) 96 01/04/18 04:00 97.8 88 20 113/55 (74) 98 01/04/18 04:00 72 01/04/18 00:00 88 01/04/18 00:00 98.6 82 20 105/67 (80) 98 01/03/18 23:48 16 I/O 01/03/18 01/03/18 01/03/18 01/04/18 01/04/18 01/04/18 07:00 15:00 23:00 07:00 15:00 23:00 Intake Total 2490 ml 350 ml 240 ml 480 ml 450 ml 1620 ml Balance 2490 ml 350 ml 240 ml 480 ml 450 ml 1620 ml Intake Oral 240 ml 240 ml 480 ml 1520 ml IV Total 2250 ml 350 ml 450 ml 100 ml # Voids 2 4 3 10 # Bowel Movements 0 0 0 Result Diagram: 01/03/18 0550 01/03/18 0550 Imaging Last Impressions Foot MRI 01/03/18 0000 Signed Impressions: Service Date/Time: Wednesday, January 03, 2018 16:12 - CONCLUSION: Findings consistent with great toe osteomyelitis. Soft tissue changes mainly in the plantar region consistent with cellulitis. No clear abscess. Luis Eduardo Edwards MD Lower Extremity CT 01/02/18 0000 Signed Impressions: Service Date/Time: Wednesday, January 03, 2018 01:34 - CONCLUSION: Normal examination. Adelfo Mcadams MD Other Results Microbiology Date/Time Source Procedure Growth Status 01/02/18 21:51 Blood Peripheral Aerobic Blood Culture - Preliminary NO GROWTH IN 2 DAYS Resulted 01/02/18 21:51 Blood Peripheral Anaerobic Blood Culture - Preliminary NO GROWTH IN 2 DAYS Resulted Objective Remarks Lower extremity physical exam: Vascular: Dorsalis pedis palpable, posterior tibial palpable. Capillary refill time within normal limits to digits x5 bilateral foot. Edema present right hallux/right foot Neuro: Gross sensation intact to bilateral lower extremity. Pinpoint sensation intact. No hyperalgesia noted to bilateral lower extremity Dermatology: Increased edema, erythema noted to right hallux with ascending erythema noted to the right first MPJ. Plantar hallux wound with hyperkeratotic wound edges. Induration noted to right hallux, no fluctuance noted. Musculoskeletal: Tender to palpation to right hallux. Medications and IVs Current Medications Medications (Trade) Dose Ordered Sig/George Route Start Time Stop Time Status Last Admin Pharmacy Profile Note 0 ml @ 0 mls/hr UNSCH OTHER 01/02/18 23:00 Piperacillin Sod/ Tazobactam Sod 100 ml @ 200 mls/hr Q6H IV 01/02/18 23:00 01/04/18 17:21 Sodium Chloride 1,000 ml @ 100 mls/hr Q10H IV 01/02/18 22:54 01/04/18 04:54 (NS Flush) 2 ml UNSCH PRN IV FLUSH 01/02/18 23:00 (NS Flush) 2 ml BID IV FLUSH 01/03/18 09:00 01/04/18 20:09 (Milk Of Magnesia Liq) 30 ml Q12H PRN PO 01/02/18 23:00 (Senokot) 17.2 mg Q12H PRN PO 01/02/18 23:00 (Dulcolax Supp) 10 mg DAILY PRN RECTAL 01/02/18 23:00 (Lactulose Liq) 30 ml DAILY PRN PO 01/02/18 23:00 (Percocet 5-325 Mg) 1 tab Q6H PRN PO 01/03/18 00:00 (Percocet 10-325 Mg) 1 tab Q6H PRN PO 01/03/18 00:00 01/04/18 17:24 (Morphine Inj) 4 mg Q3H PRN IV PUSH 01/02/18 23:45 01/03/18 05:25 (Narcan Inj) 0.4 mg UNSCH PRN IV PUSH 01/03/18 00:00 (Zofran Odt) 4 mg Q6H PRN SL 01/03/18 22:45 (Xylocaine 1% Inj) 20 ml UNSCH X1 PRN OTHER 01/04/18 05:45 01/05/18 05:44 Vancomycin HCl 1250 mg/Sodium Chloride 262.5 ml @ 250 mls/hr Q12H IV 01/04/18 21:00 01/04/18 20:09 ([facility] [place] [facility] Ordered Lab Info) SPECIFIC LAB TO BE DRAWN:VANCOMYCIN TROUGH DATE TO... 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 15 blade utilized to make 1 cm incision to plantar hallux 5 cc purulent drainage noted. Site copiously irrigated with normal saline. Jamshidi needle utilized to perform bone biopsy. Biopsy obtained for pathology, biopsy obtained for culture. Site was once again copiously irrigated with sterile normal saline. Packing was placed to incision site followed by DSD. Patient tolerated procedure and anesthesia well neurovascular status was intact to right foot. Sofie New DPM January 04, 2018 22:41
[2018-01-04] MEDS: GABAPENTIN 100 MG CAP PO SCH (23:17)
[2018-01-05] VITALS (12 sets, daily range): BP systolic 101–128; BP diastolic 55–74; PULSE 59–93; RESP 16–17; TEMP 97.9–98.3; O2SAT 97–99
[2018-01-05] MEDS: PIPERACIL-TAZO 4.5 GM PREMIX 100 ML IV SCH ×4 (04:23→22:38)
[2018-01-05] MEDS: oxyCODONE/ACETAMINOPHEN 10 MG/325 MG TAB PO PRN ×2 (04:23→17:14)
[2018-01-05] MEDS: SODIUM CHLOR 0.9% 1000 ML INJ 1,000 ML IV SCH ×3 (04:24→20:54)
[2018-01-05 07:33] LABS: CREATININE 0.74 MG/DL (0.50-1.00)
[2018-01-05] MEDS: SODIUM CHLORIDE 0.9% FLUSH 10 ML FLUSH IV FLUSH SCH ×2 (08:14→22:04)
[2018-01-05] MEDS: VANCOMYCIN INJ 1,250 MG in SODIUM CHLOR 0.9% 250 ML INJ 250 ML IV SCH ×2 (08:14→22:04)
[2018-01-05] MEDS: GABAPENTIN 100 MG CAP PO SCH ×3 (08:15→17:14)
[2018-01-05] MEDS: CELECOXIB 100 MG CAP PO SCH (08:15)
--- NOTE | 2018-01-05 12:53 | HHI.PR ---
Subjective Remarks Nursing denies any deterioration since last night. Patient says her pain is even better after her incision and debridement and biopsy procedure yesterday. Objective Vital Signs Date Time Temp Pulse Resp B/P (MAP) Pulse Ox O2 Delivery O2 Flow Rate FiO2 01/05/18 08:12 97.9 93 16 101/55 (70) 98 01/05/18 08:00 91 01/05/18 04:02 98.3 89 16 113/57 (75) 97 01/05/18 04:00 76 01/05/18 00:00 68 01/04/18 23:12 98.1 81 16 100/55 (70) 98 01/04/18 21:00 98.2 73 16 146/63 (90) 100 01/04/18 20:00 100 01/04/18 16:00 98.1 80 16 120/76 (91) 98 01/04/18 16:00 83 I/O 01/04/18 01/04/18 01/04/18 01/05/18 01/05/18 01/05/18 06:59 14:59 22:59 06:59 14:59 22:59 Intake Total 480 ml 450 ml 1620 ml 240 ml Balance 480 ml 450 ml 1620 ml 240 ml Intake Oral 480 ml 1520 ml 240 ml IV Total 450 ml 100 ml # Voids 3 10 2 # Bowel Movements 0 0 0 Result Diagram: 01/03/18 0550 01/05/18 0639 Objective Remarks Left foot is in post-procedure dressing, no erythema noted over left ankle or over left leg, has intact sensation to light touch over 4 lesser toes, great toe has decreased sensation to light finger touch A/P Assessment and Plan //Sepsis //Right toe cellulitis and possible osteomyelitis - Blood cultures and wound culture negative. = Celebrex for pain control. -Continue antibiotics per infectious disease, MRI findings possibly compatible with osteomyelitis, status post bone biopsy pending ultimate results. Ancelmo Fatima MD January 05, 2018 12:53
--- NOTE | 2018-01-05 14:02 | HHI.IDPN ---
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 She was not sure what she stepped on but there was a lot of stagnant water and plans on the leg. On January 02 she presented to the hospital complaining of pain and swelling on her right big toe. She apparently had some leftover antibiotic and she took a dose on January 01. In the ED she got a dose of antibiotics, and she was given a prescription for Augmentin and clindamycin. Patient however has not started taking it, and she started having nausea and vomiting. She could not keep anything down, and because of the persistent problem also with her right foot she presented back to the hospital and has been admitted. She had noted that the redness on the foot started spreading on the top of her toe going up to the distal right leg. She had some low-grade fevers. Her WBC on admission was 19,000. She has been afebrile. Imaging studies did not show any foreign body, or any osteomyelitis. Her WBC is down to 12,000. Patient has been on vancomycin and Zosyn. She denies any abdominal pain or any urinary complaint. Denies any respiratory complaint. Infectious disease consultation has been requested to evaluate the patient Notes reviewed Temps ok Pain better Had bone biopsy done yesterday Biopsy C/S negative so far MRI with osteo R big toe BC negative ESR only 7 CRP 2.5 Antibiotics Vancomycin Zosyn Current Medications Medications (Trade) Dose Ordered Sig/George Route Start Time Stop Time Status Last Admin Pharmacy Profile Note 0 ml @ 0 mls/hr UNSCH OTHER 01/02/18 23:00 Piperacillin Sod/ Tazobactam Sod 100 ml @ 200 mls/hr Q6H IV 01/02/18 23:00 01/05/18 11:25 Sodium Chloride 1,000 ml @ 100 mls/hr Q10H IV 01/02/18 22:54 01/05/18 04:24 (NS Flush) 2 ml UNSCH PRN IV FLUSH 01/02/18 23:00 (NS Flush) 2 ml BID IV FLUSH 01/03/18 09:00 01/04/18 20:09 (Milk Of Magnesia Liq) 30 ml Q12H PRN PO 01/02/18 23:00 (Senokot) 17.2 mg Q12H PRN PO 01/02/18 23:00 (Dulcolax Supp) 10 mg DAILY PRN RECTAL 01/02/18 23:00 (Lactulose Liq) 30 ml DAILY PRN PO 01/02/18 23:00 (Percocet 5-325 Mg) 1 tab Q6H PRN PO 01/03/18 00:00 (Percocet 10-325 Mg) 1 tab Q6H PRN PO 01/03/18 00:00 01/05/18 04:23 (Morphine Inj) 4 mg Q3H PRN IV PUSH 01/02/18 23:45 01/03/18 05:25 (Narcan Inj) 0.4 mg UNSCH PRN IV PUSH 01/03/18 00:00 (Zofran Odt) 4 mg Q6H PRN SL 01/03/18 22:45 Vancomycin HCl 1250 mg/Sodium Chloride 262.5 ml @ 250 mls/hr Q12H IV 01/04/18 21:00 01/05/18 08:14 ([facility] [place] [facility] Ordered Lab Info) SPECIFIC LAB TO BE DRAWN:VANCOMYCIN TROUGH DATE TO... ONCE ONCE .XX 01/06/18 09:45 01/06/18 09:46 (Neurontin) 100 mg TID PO 01/04/18 21:00 01/05/18 12:01 (CeleBREX) 100 mg DAILY PO 01/05/18 09:00 01/05/18 08:15 Lines No evidence of infection Past Medical History Appy D and C Allergies: Coded Allergies: No Known Allergies (Unverified , 01/02/18) Objective . Vital Signs Date Time Temp Pulse Resp B/P (MAP) Pulse Ox O2 Delivery O2 Flow Rate FiO2 01/05/18 12:12 97.9 72 16 128/74 (92) 98 01/05/18 12:00 75 01/05/18 08:12 97.9 93 16 101/55 (70) 98 01/05/18 08:00 91 01/05/18 04:02 98.3 89 16 113/57 (75) 97 01/05/18 04:00 76 01/05/18 00:00 68 01/04/18 23:12 98.1 81 16 100/55 (70) 98 01/04/18 21:00 98.2 73 16 146/63 (90) 100 01/04/18 20:00 100 01/04/18 16:00 98.1 80 16 120/76 (91) 98 01/04/18 16:00 83 . Laboratory Tests Test 01/05/18 06:39 Creatinine 0.74 MG/DL Estimat Glomerular Filtration Rate 95 ML/MIN Microbiology Date/Time Source Procedure Growth Status 01/02/18 21:51 Blood Peripheral Aerobic Blood Culture - Preliminary NO GROWTH IN 3 DAYS Resulted 01/02/18 21:51 Blood Peripheral Anaerobic Blood Culture - Preliminary NO GROWTH IN 3 DAYS Resulted 01/02/18 21:40 Blood Peripheral Aerobic Blood Culture - Preliminary NO GROWTH IN 3 DAYS Resulted 01/02/18 21:40 Blood Peripheral Anaerobic Blood Culture - Preliminary NO GROWTH IN 3 DAYS Resulted 01/04/18 21:00 Wound Bone Gram Stain - Final Resulted 01/04/18 21:00 Wound Bone Wound Culture - Preliminary NO GROWTH IN 24 HOURS. Resulted Imaging Last Impressions Foot MRI 01/03/18 0000 Signed Impressions: Service Date/Time: Wednesday, January 03, 2018 16:12 - CONCLUSION: Findings consistent with great toe osteomyelitis. Soft tissue changes mainly in the plantar region consistent with cellulitis. No clear abscess. Luis Eduardo Edwards MD Lower Extremity CT 01/02/18 0000 Signed Impressions: Service Date/Time: Wednesday, January 03, 2018 01:34 - CONCLUSION: Normal examination. Adelfo Mcadams MD Physical Exam GENERAL: awake and alert, not in respiratory distress. SKIN: Warm and dry. No generalized rash, no ecchymoses and no evidence of embolic lesions. HEAD: Atraumatic. Normocephalic. No temporal wasting, or tenderness. EYES: [place] conjunctiva. No petechia or hemorrhage. Pupils equal, round and reactive to light. Extraocular movements full and intact. No scleral icterus. EARS, NOSE AND THROAT: Nose without bleeding or purulent nasal discharge. No sinus tenderness. Mucous membranes pink and moist. No oral lesions noted. NECK: Trachea midline. Supple and not tender, no meningeal signs CARDIOVASCULAR: Regular rate and rhythm. No murmurs, rubs or gallops heard RESPIRATORY: Clear to auscultation. Breath sounds equal bilaterally. No rales , wheezing or rhonchi ABDOMEN: Soft, non-tender, nondistended. Bowel sounds present and normoactive. No guarding. No rebound. No organomegaly. EXTREMITIES: No clubbing, cyanosis, or edema. R foot: dry intact dressing NEUROLOGICAL: Non-focal. PSYCHIATRIC: Normal affect, calm and cooperative. LINE: No evidence of infection Assessment & Plan Remarks IMPRESSION Cellulitis R foot/R big toe with puncture wound Osteo R big toe on MRI - S/P bone biopsy, path report pending RECOMMENDATION Continue Vanco Continue Zosyn Follow path report and bone biopsy C/S Monitor progress and response to Rx Will determine course of Rx depending on results of work-up Explained plan to the patient Dr Bradshaw available this weekend if needed Stephanie Fowler MD January 05, 2018 14:02
--- NOTE | 2018-01-05 15:32 | PD.POD ---
Subjective Podiatric Problems s/p right hallux bone biopsy at bedside, results pending. Pt states she feels the pain has lessen a small amount and there is less pressure sensation since the procedure. She denies any n/v/f/h/c/sob. Past Med/Surg/Social History Social History Smoking Status: Current Every Day Smoker Objective Vital Signs Vital Signs Date Time Temp Pulse Resp B/P (MAP) Pulse Ox O2 Delivery O2 Flow Rate FiO2 01/05/18 12:12 97.9 72 16 128/74 (92) 98 01/05/18 12:00 75 01/05/18 08:12 97.9 93 16 101/55 (70) 98 01/05/18 08:00 91 01/05/18 04:02 98.3 89 16 113/57 (75) 97 01/05/18 04:00 76 01/05/18 00:00 68 01/04/18 23:12 98.1 81 16 100/55 (70) 98 01/04/18 21:00 98.2 73 16 146/63 (90) 100 01/04/18 20:00 100 01/04/18 16:00 98.1 80 16 120/76 (91) 98 01/04/18 16:00 83 Coded Allergies: No Known Allergies (Unverified , 01/02/18) Physical Exam Remarks Right plantar hallux ulcer 1.0cm x 0.5cm x 0.5cm deep probing, mild erythema to MPJ level, mild edema, no drainage, no malodor Assessment & Plan A/P 1) right foot stage III ulcer with questionable OM -bone bx pending -pt is aware that options for OM are amputation or mcc iv abx. If bone bx is positive pt would like to try iv abx and avoid amputation. I feel this is reasonable given the acute nature or her infection. -wound care orders placed with nursing staff -pt will need f/u with wound care clinic or a tetryl dissolver operator within her insurance network at time of d/c Sandra Hutchison DPM January 05, 2018 15:32
[2018-01-06] VITALS (9 sets, daily range): BP systolic 109–121; BP diastolic 59–83; PULSE 64–78; RESP 16–18; TEMP 97.8–98.5; O2SAT 97–98
[2018-01-06] MEDS: PIPERACIL-TAZO 4.5 GM PREMIX 100 ML IV SCH ×4 (04:32→22:10)
[2018-01-06 06:30] LABS: CREATININE 0.66 MG/DL (0.50-1.00)
[2018-01-06] MEDS: SODIUM CHLOR 0.9% 1000 ML INJ 1,000 ML IV SCH ×2 (06:36→16:52)
[2018-01-06] MEDS ORDERED: PHARMACY ORDERED LAB ONE (08:45)
[2018-01-06] MEDS: SODIUM CHLORIDE 0.9% FLUSH 10 ML FLUSH IV FLUSH SCH ×2 (08:56→21:00)
[2018-01-06] MEDS: GABAPENTIN 100 MG CAP PO SCH ×3 (08:56→17:37)
[2018-01-06] MEDS: BACITRACIN TOP OINT 15 GM TUBE TOPICAL SCH (08:56)
[2018-01-06] MEDS: VANCOMYCIN INJ 1,250 MG in SODIUM CHLOR 0.9% 250 ML INJ 250 ML IV SCH (08:56)
[2018-01-06] MEDS: CELECOXIB 100 MG CAP PO SCH (08:57)
[2018-01-06] MEDS: oxyCODONE/ACETAMINOPHEN 10 MG/325 MG TAB PO PRN ×2 (12:22→22:18)
--- NOTE | 2018-01-06 14:48 | HHI.PR ---
Subjective Remarks Complains of some pain due to dressing changes but states that the pain med controls the pain denies any CP/SOB/N/V Objective Vitals Vital Signs Date Time Temp Pulse Resp B/P (MAP) Pulse Ox O2 Delivery O2 Flow Rate FiO2 01/06/18 12:00 Room Air 01/06/18 08:12 98.0 68 18 114/74 (87) 97 01/06/18 08:00 Room Air 01/06/18 04:02 98.1 78 16 109/59 (76) 98 01/06/18 04:00 72 01/06/18 00:00 74 01/05/18 23:00 98.1 71 16 124/58 (80) 99 01/05/18 19:49 98.0 83 16 126/56 (79) 99 01/05/18 19:45 83 01/05/18 16:12 98.1 59 17 116/73 (87) 98 01/05/18 16:00 78 I/O 01/05/18 01/05/18 01/05/18 01/06/18 01/06/18 01/06/18 07:00 15:00 23:00 07:00 15:00 23:00 Intake Total 240 ml 362.5 ml 960 ml 720 ml Balance 240 ml 362.5 ml 960 ml 720 ml Intake Oral 240 ml 960 ml 720 ml IV Total 362.5 ml # Voids 2 3 3 # Bowel Movements 0 1 0 Result Diagram: 01/03/18 0550 01/06/18 0508 Imaging Last Impressions Foot MRI 01/03/18 0000 Signed Impressions: Service Date/Time: Wednesday, January 03, 2018 16:12 - CONCLUSION: Findings consistent with great toe osteomyelitis. Soft tissue changes mainly in the plantar region consistent with cellulitis. No clear abscess. Luis Eduardo Edwards MD Lower Extremity CT 01/02/18 0000 Signed Impressions: Service Date/Time: Wednesday, January 03, 2018 01:34 - CONCLUSION: Normal examination. Adelfo Mcadams MD Objective Remarks Sitting up in bed, appears comfortable HR rrr w no murmurs lungs are clear abd soft, NT Left foot w dressing in place d/c/i A/P Assessment and Plan //Sepsis //Right toe cellulitis and possible osteomyelitis - Blood cultures neg to date and wound culture growing gram neg fidencio. currently in IVvanco and zosyn. ID and podiatry following. Awaiting bone biopsy results which are still pending. continue Celebrex for pain control. monitor Cr levels Vitals reviewed and have been stable Discharge Planning awaiting bone biopsy results and awaiting final recs from consultants. Dede Evans MD January 06, 2018 14:48
[2018-01-06] MEDS: VANCOMYCIN 1,000 MG/NS 250 ML IV SCH ×2 (17:37)
[2018-01-06] MEDS ORDERED: VANCOMYCIN 1 GM/200 ML PREMIX IV SCH (18:00)
[2018-01-07] VITALS (10 sets, daily range): BP systolic 100–129; BP diastolic 59–92; PULSE 60–87; RESP 14–19; TEMP 97.8–98.4; O2SAT 97–100
[2018-01-07] MEDS: VANCOMYCIN 1,000 MG/NS 250 ML IV SCH ×6 (01:13→18:24)
[2018-01-07] MEDS: PIPERACIL-TAZO 4.5 GM PREMIX 100 ML IV SCH ×4 (05:29→23:09)
[2018-01-07] MEDS: SODIUM CHLOR 0.9% 1000 ML INJ 1,000 ML IV SCH (05:30)
[2018-01-07 05:51] LABS: AUTOMATED NEUTROPHIL # 2.5 TH/MM3 (1.8-7.7); BASOPHIL % 0.6 % (0.0-2.0); EOSINOPHIL # 0.2 TH/MM3 (0-0.4); EOSINOPHIL % 3.8 % (0.0-4.0); HEMATOCRIT 34.2 % (35.0-46.0); HEMOGLOBIN 11.6 GM/DL (11.6-15.3); LYMPH % 37.7 % (9.0-44.0); MEAN CELL VOLUME 91.4 FL (80.0-100.0); MEAN PLATELET VOLUME 8.9 FL (7.0-11.0); MONO % 10.1 % (0.0-8.0); MONOCYTE # 0.5 TH/MM3 (0-0.9); NEUT % 47.8 % (16.0-70.0); PLATELET COUNT 243 TH/MM3 (150-450); RED BLOOD COUNT 3.74 MIL/MM3 (4.00-5.30); RED CELL DISTRIBUTION WIDTH 13.2 % (11.6-17.2); WHITE BLOOD COUNT 5.3 TH/MM3 (4.0-11.0)
[2018-01-07 05:55] LABS: BICARBONATE 25.5 MEQ/L (21.0-32.0); CALCIUM 8.1 MG/DL (8.5-10.1); CREATININE 0.7 MG/DL (0.50-1.00)
[2018-01-07] MEDS: BACITRACIN TOP OINT 15 GM TUBE TOPICAL SCH (09:00)
[2018-01-07] MEDS: CELECOXIB 100 MG CAP PO SCH (09:31)
[2018-01-07] MEDS: GABAPENTIN 100 MG CAP PO SCH ×3 (09:31→17:30)
[2018-01-07] MEDS: SODIUM CHLORIDE 0.9% FLUSH 10 ML FLUSH IV FLUSH SCH ×2 (09:32→20:59)
[2018-01-07] MEDS: oxyCODONE/ACETAMINOPHEN 10 MG/325 MG TAB PO PRN ×2 (10:16→21:10)
[2018-01-07] MEDS ORDERED: GADODIAMIDE PF 287 MG/ML 10 ML VIAL (for RAD MRI) IVCONTRAST ONE (13:19)
--- NOTE | 2018-01-07 13:58 | RADRPT ---
EXAM DATE/TIME: 01/07/2018 13:04 [place] COMPARISON: MRI FOOT RIGHT W & W/O CONTRAST, January 03, 2018, 16:12. INDICATIONS : Osteomyelitis. Extending pain over medial malleoli. Patient complains of new pain of the medial mall eolus. CONTRAST: 10 cc Omniscan (gadodiamide) IV MEDICAL HISTORY : None. SURGICAL HISTORY : Appendectomy. ENCOUNTER: Initial ACUITY: 1 day PAIN SCORE: 4/10 LOCATION: Right medial ankle/foot TECHNIQUE: Multiplanar, multisequence MRI examination was performed without contrast and after the intravenous a dministration of gadolinium. FINDINGS: Marrow signal in the distal tibia, fibula and talus appears normal. There is no abnormal soft tissue induration. There is no free fluid. I do not see evidence for an inflammatory process. The lateral collateral ligament complex appears intact. Minimal marrow signal is present in the distal soft of the great toe the associated ulceration. This has not changed significantly CONCLUSION: Hindfoot is unremarkable.. Jh Cho MD FACR on January 07, 2018 at 13:50 Board Certified Radiologist. This report was verified electronically.
--- NOTE | 2018-01-07 14:07 | HHI.PR ---
Subjective Remarks Nursing denies any deterioration since last night. Patient says her pain is even better after her incision and debridement and biopsy procedure yesterday. Objective Vital Signs Date Time Temp Pulse Resp B/P (MAP) Pulse Ox O2 Delivery O2 Flow Rate FiO2 01/07/18 12:12 98.1 81 16 129/72 (91) 100 01/07/18 08:12 97.8 87 16 124/92 (103) 100 01/07/18 04:22 69 01/07/18 04:00 97.8 72 19 100/59 (73) 97 01/07/18 03:11 60 01/07/18 00:05 18 01/07/18 00:00 98.4 74 17 123/69 (87) 98 01/06/18 20:00 97.8 74 17 120/78 (92) 97 01/06/18 16:12 98.1 70 18 116/72 (87) 98 01/06/18 16:00 Room Air I/O 01/06/18 01/06/18 01/06/18 01/07/18 01/07/18 01/07/18 07:00 15:00 23:00 07:00 15:00 23:00 Intake Total 720 ml 520 ml 1590 ml Balance 720 ml 520 ml 1590 ml Intake Oral 720 ml 520 ml 240 ml IV Total 1350 ml # Voids 3 7 3 # Bowel Movements 0 2 Result Diagram: 01/07/18 0425 01/07/18 0425 Objective Remarks Left foot is in post-procedure dressing, no erythema noted over left ankle or over left leg, has intact sensation to light touch over 4 lesser toes, great toe has decreased sensation to light finger touch A/P Assessment and Plan //Right toe cellulitis and possible osteomyelitis -Blood cultures are negative however bone biopsy is showing gram-negative. Discussed with micrology, anticipate speciation to come back tomorrow, specimen had to be repeated per microbiology with reason yet to be specified. Continue vancomycin and Zosyn. -Discussed with podiatry, will obtain repeat MRI of the right ankle given the patient having new medial malleolus pain that was not there before Discharge Planning awaiting bone biopsy results and awaiting final recs from consultants. Ancelmo Fatima MD January 07, 2018 14:07
[2018-01-08] VITALS: BP 98/54; PULSE 60; PULSE 66; RESP 14; TEMP 98.3; O2SAT 98
[2018-01-08] MEDS ORDERED: PHARMACY ORDERED LAB ONE (01:45)
[2018-01-08] MEDS: VANCOMYCIN 1,000 MG/NS 250 ML IV SCH ×4 (01:47→09:51)
[2018-01-08 04:00] VITALS: BP 110/59; PULSE 60; PULSE 68; RESP 14; TEMP 98.2; O2SAT 98
[2018-01-08] MEDS: PIPERACIL-TAZO 4.5 GM PREMIX 100 ML IV SCH ×2 (05:02→10:56)
[2018-01-08 08:00] VITALS: BP 106/55; PULSE 47; PULSE 68; RESP 20; TEMP 98.1; O2SAT 97
[2018-01-08] MEDS: CELECOXIB 100 MG CAP PO SCH (09:50)
[2018-01-08] MEDS: GABAPENTIN 100 MG CAP PO SCH ×3 (09:50→17:33)
[2018-01-08] MEDS: SODIUM CHLORIDE 0.9% FLUSH 10 ML FLUSH IV FLUSH SCH (09:54)
--- NOTE | 2018-01-08 10:27 | HHI.IDPN ---
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 She was not sure what she stepped on but there was a lot of stagnant water and plans on the leg. On January 02 she presented to the hospital complaining of pain and swelling on her right big toe. She apparently had some leftover antibiotic and she took a dose on January 01. In the ED she got a dose of antibiotics, and she was given a prescription for Augmentin and clindamycin. Patient however has not started taking it, and she started having nausea and vomiting. She could not keep anything down, and because of the persistent problem also with her right foot she presented back to the hospital and has been admitted. She had noted that the redness on the foot started spreading on the top of her toe going up to the distal right leg. She had some low-grade fevers. Her WBC on admission was 19,000. She has been afebrile. Imaging studies did not show any foreign body, or any osteomyelitis. Her WBC is down to 12,000. Patient has been on vancomycin and Zosyn. She denies any abdominal pain or any urinary complaint. Denies any respiratory complaint. Infectious disease consultation has been requested to evaluate the patient Notes reviewed Temps ok Pain better Bone biopsy pending Bone C/S with GNR, possible Aeromonas S to Quinolone Biopsy path pending MRI with osteo R big toe BC negative ESR only 7 CRP 2.5 Antibiotics Vancomycin Zosyn Current Medications Medications (Trade) Dose Ordered Sig/George Route Start Time Stop Time Status Last Admin Pharmacy Profile Note 0 ml @ 0 mls/hr UNSCH OTHER 01/02/18 23:00 Piperacillin Sod/ Tazobactam Sod 100 ml @ 200 mls/hr Q6H IV 01/02/18 23:00 01/08/18 05:02 (NS Flush) 2 ml UNSCH PRN IV FLUSH 01/02/18 23:00 (NS Flush) 2 ml BID IV FLUSH 01/03/18 09:00 01/08/18 09:54 (Milk Of Magnesia Liq) 30 ml Q12H PRN PO 01/02/18 23:00 (Senokot) 17.2 mg Q12H PRN PO 01/02/18 23:00 (Dulcolax Supp) 10 mg DAILY PRN RECTAL 01/02/18 23:00 (Lactulose Liq) 30 ml DAILY PRN PO 01/02/18 23:00 (Percocet 5-325 Mg) 1 tab Q6H PRN PO 01/03/18 00:00 (Percocet 10-325 Mg) 1 tab Q6H PRN PO 01/03/18 00:00 01/07/18 21:10 (Narcan Inj) 0.4 mg UNSCH PRN IV PUSH 01/03/18 00:00 (Zofran Odt) 4 mg Q6H PRN SL 01/03/18 22:45 (Neurontin) 100 mg TID PO 01/04/18 21:00 01/08/18 09:50 (CeleBREX) 100 mg DAILY PO 01/05/18 09:00 01/08/18 09:50 (Baciguent Oint) 1 applic DAILY TOPICAL 01/06/18 09:00 01/07/18 09:00 Vancomycin HCl 1000 mg/Sodium Chloride 250 ml @ 250 mls/hr Q8H IV 01/06/18 18:00 01/08/18 09:51 ([facility] [place] [facility] Ordered Lab Info) SPECIFIC LAB TO BE ... ONCE ONCE .XX 01/10/18 01:45 01/10/18 01:46 Lines No evidence of infection Past Medical History Appy D and C Allergies: Coded Allergies: No Known Allergies (Unverified , 01/02/18) Objective . Vital Signs Date Time Temp Pulse Resp B/P (MAP) Pulse Ox O2 Delivery O2 Flow Rate FiO2 01/08/18 08:00 98.1 68 20 106/55 (72) 97 01/08/18 07:00 Room Air 01/08/18 04:00 68 01/08/18 04:00 Room Air 01/08/18 04:00 98.2 60 14 110/59 (76) 98 01/08/18 00:00 Room Air 01/08/18 00:00 60 01/08/18 00:00 98.3 66 14 98/54 (69) 98 01/07/18 20:00 98.2 71 14 116/61 (79) 99 01/07/18 20:00 Room Air 01/07/18 16:12 98.0 80 16 128/82 (97) 100 01/07/18 12:12 98.1 81 16 129/72 (91) 100 01/07/18 12:00 85 01/07/18 12:00 81 . Laboratory Tests Test 01/07/18 04:25 White Blood Count 5.3 TH/MM3 Red Blood Count 3.74 MIL/MM3 Hemoglobin 11.6 GM/DL Hematocrit 34.2 % Mean Corpuscular Volume 91.4 FL Mean Corpuscular Hemoglobin 31.0 PG Mean Corpuscular Hemoglobin Concent 34.0 % Red Cell Distribution Width 13.2 % Platelet Count 243 TH/MM3 Mean Platelet Volume 8.9 FL Neutrophils (%) (Auto) 47.8 % Lymphocytes (%) (Auto) 37.7 % Monocytes (%) (Auto) 10.1 % Eosinophils (%) (Auto) 3.8 % Basophils (%) (Auto) 0.6 % Neutrophils # (Auto) 2.5 TH/MM3 Lymphocytes # (Auto) 2.0 TH/MM3 Monocytes # (Auto) 0.5 TH/MM3 Eosinophils # (Auto) 0.2 TH/MM3 Basophils # (Auto) 0.0 TH/MM3 CBC Comment DIFF FINAL Differential Comment Laboratory Tests Test 01/07/18 04:25 Blood Urea Nitrogen 6 MG/DL Creatinine 0.70 MG/DL Random Glucose 83 MG/DL Calcium Level 8.1 MG/DL Sodium Level 144 MEQ/L Potassium Level 4.1 MEQ/L Chloride Level 110 MEQ/L Carbon Dioxide Level 25.5 MEQ/L Anion Gap 9 MEQ/L Estimat Glomerular Filtration Rate 101 ML/MIN Imaging Last Impressions Foot MRI 01/03/18 0000 Signed Impressions: Service Date/Time: Wednesday, January 03, 2018 16:12 - CONCLUSION: Findings consistent with great toe osteomyelitis. Soft tissue changes mainly in the plantar region consistent with cellulitis. No clear abscess. Luis Eduardo Edwards MD Lower Extremity CT 01/02/18 0000 Signed Impressions: Service Date/Time: Wednesday, January 03, 2018 01:34 - CONCLUSION: Normal examination. Adelfo Mcadams MD Physical Exam GENERAL: awake and alert, not in respiratory distress. SKIN: Warm and dry. No generalized rash. HEAD: Atraumatic. Normocephalic. No temporal wasting, or tenderness. EYES: [place] conjunctiva. No petechia or hemorrhage. Pupils equal, round and reactive to light. Extraocular movements full and intact. No scleral icterus. EARS, NOSE AND THROAT: Nose without bleeding or purulent nasal discharge. No sinus tenderness. Mucous membranes pink and moist. No oral lesions noted. NECK: Trachea midline. Supple and not tender, no meningeal signs CARDIOVASCULAR: Regular rate and rhythm. No murmurs, rubs or gallops heard RESPIRATORY: Clear to auscultation. Breath sounds equal bilaterally. No rales , wheezing or rhonchi ABDOMEN: Soft, non-tender, nondistended. Bowel sounds present and normoactive. No guarding. No rebound. No organomegaly. EXTREMITIES: No clubbing, cyanosis, or edema. R foot: dry intact dressing, bug toe min redness, edema better NEUROLOGICAL: Non-focal. PSYCHIATRIC: Normal affect, calm and cooperative. LINE: No evidence of infection Assessment & Plan Remarks IMPRESSION Cellulitis R foot/R big toe with puncture wound Osteo R big toe on MRI - S/P bone biopsy, path report pending - C/S GNR S to quinolone RECOMMENDATION Stop Vanco Continue Zosyn Cipro If first dose Cipro tolerated, ok to D/C today and give 2 months Cipro 750 mg BID Explained plan to the patient D/W Dr Fatima Followup with Dr Jaquez (ID) Stephanie Fowler MD January 08, 2018 10:27
[2018-01-08] MEDS: oxyCODONE/ACETAMINOPHEN 10 MG/325 MG TAB PO PRN (10:55)
[2018-01-08] MEDS ORDERED: OXYC1TAB36 PO (11:09)
--- NOTE | 2018-01-08 11:10 | HHI.DCPOC ---
Discharge Care Plan Diagnosis: (1) Osteomyelitis of foot, right, acute Goals to Promote Your Health * To prevent worsening of your condition and complications * To maintain your health at the optimal level Directions to Meet Your Goals Take your medications as prescribed Follow your dietary instruction Follow activity as directed Keep your appointments as scheduled Take your immunizations and boosters as scheduled If your symptoms worsen call your PCP, if no PCP go to Urgent Care Center or Emergency Room Smoking is Dangerous to Your Health. Avoid second hand smoke Call the 24-hour hour crisis hotline for domestic abuse at Ancelmo Fatima MD January 08, 2018 11:10
[2018-01-08] MEDS ORDERED: POST-OP SHOE/SO1 MIS (11:12)
--- NOTE | 2018-01-08 11:12 | HHI.DS ---
Discharge Summary Admission Date January 02, 2018 at 22:58 Discharge Date: January 08, 2018 Admitting Diagnosis Cellulitis, thrombophlebitis, SIRS (1) Osteomyelitis of foot, right, acute ICD Code: M86.171 - Other acute osteomyelitis, right ankle and foot Procedures Right great toe bedside debridement Brief History - From Admission 27-year-old female with no significant past medical history, who initially presented with pain and swelling of right toe this morning, having stepped on what she thought was rebar in a fresh water mason yesterday. She was sent home on by mouth antibiotics, Augmentin and Clinda however returns to the hospital due to nausea and vomiting since this morning, unable to keep anything down. Positive subjective fevers. Constant severe pain in right toe, worsening since yesterday CBC/BMP: 01/07/18 0425 01/07/18 0425 Significant Findings Laboratory Tests Test 01/06/18 05:08 01/06/18 10:07 01/07/18 04:25 01/08/18 02:00 Vancomycin Level Trough 10.3 MCG/ML (5.0-10.0) 17.7 MCG/ML (5.0-10.0) Red Blood Count 3.74 MIL/MM3 (4.00-5.30) Hematocrit 34.2 % (35.0-46.0) Monocytes (%) (Auto) 10.1 % (0.0-8.0) Blood Urea Nitrogen 6 MG/DL (7-18) Calcium Level 8.1 MG/DL (8.5-10.1) Chloride Level 110 MEQ/L (98-107) Imaging Last Impressions Foot MRI 01/07/18 0000 Signed Impressions: Service Date/Time: Sunday, January 07, 2018 13:04 - CONCLUSION: Hindfoot is unremarkable.. Jh Cho MD FACR Lower Extremity CT 01/02/18 0000 Signed Impressions: Service Date/Time: Wednesday, January 03, 2018 01:34 - CONCLUSION: Normal examination. Adelfo Mcadams MD PE at Discharge Right foot and postprocedure dressing, toes are normal colored, no gross edema noted over the foot Hospital Course Patient was admitted, started on IV fluids and IV antibiotics. Infectious disease and podiatry were consulted. Patient underwent bedside debridement. Bone biopsy showed Aeromonas, patient tolerated initial Cipro does well. Clear for discharge from both podiatry and infectious disease standpoint, to be on Cipro for 2 months p.o. per infectious disease. Patient has met maximal benefit from hospitalization and is clinically stable for discharge. Pt Condition on Discharge: Stable Discharge Disposition: Discharge Home Discharge Time: <= 30 minutes Discharge Instructions Follow up Referrals: Infectious Disease - 10 Days with Glory Jaquez MD PCP Follow-up - 1 Week Podiatry - 1 Week with Sofie New DPM New Medications: Ciprofloxacin (Ciprofloxacin) 750 Mg Tab 750 MG PO BID for Infection, #28 TAB 3 Refills Post-Op Shoe/Soft Top/Women (Post-Op Shoe/Soft Top/Women) 1 Mis Mis EA .XX DIRECTED, #1 0 Refills weight bearing on right heel Walker with Front Wheels (Walker with Front Wheels) 1 Mis Mis EA .XX DIRECTED, #1 0 Refills Oxycodone HCl/Acetaminophen (Oxycodone-Acetaminophen 10-325) 10 Mg-325 Mg Tablet 1 TAB PO Q6H PRN for pain, #15 TAB Discontinued Medications: Amoxicillin-Clavulanate (Augmentin) 875-125 Mg Tab 1 TAB PO BID for Infection for 10 Days, #20 TAB 0 Refills Clindamycin (Clindamycin) 150 Mg Cap 450 MG PO Q6H for Infection for 10 Days, #120 CAP 0 Refills Ibuprofen (Ibuprofen) 800 Mg Tab 800 MG PO Q6HR PRN for PAIN, #30 TAB 0 Refills Tramadol (Tramadol) 50 Mg Tab 50 MG PO Q4H PRN for PAIN, #10 TAB 0 Refills Ancelmo Fatima MD January 08, 2018 11:12
[2018-01-08] MEDS ORDERED: WALKER WHEELS/F1 MIS (11:15)
[2018-01-08 12:00] VITALS: BP 116/57; PULSE 61; PULSE 79; RESP 20; TEMP 98.1; O2SAT 100
[2018-01-08] MEDS ORDERED: CIPROFLOXACIN 750 MG TAB PO SCH (12:00)
[2018-01-08] MEDS: BACITRACIN TOP OINT 15 GM TUBE TOPICAL SCH (12:15)
[2018-01-08] MEDS ORDERED: CIPR750T2 PO (14:22)
[2018-01-10] MEDS ORDERED: PHARMACY ORDERED LAB ONE (01:45)
== END 2018-01-08 18:09 | disposition home or self-care (01) | DRG 854 ==
LOC: NEPD 19:09 → NEDA 22:58 → N04A 01-03 01:45
PROVIDERS: ADMIT Hospitalist; ATTEND Hospitalist
PROC: 0QBQ0ZX Excision of Right Toe Phalanx, Open Approach, Diagnostic (ICD-10-PCS; principal; 2018-01-04)
PROC: 0Y9M0ZX Drainage of Right Foot, Open Approach, Diagnostic (ICD-10-PCS; 2018-01-04)
DX: A41.9 Sepsis, unspecified organism (principal); M86.171 Other acute osteomyelitis, right ankle and foot; F17.210 Nicotine dependence, cigarettes, uncomplicated; L03.031 Cellulitis of right toe; I80.9 Phlebitis and thrombophlebitis of unspecified site
CPT/HCPCS: 73630; 73701; 73720; 76937; 80048; 80053; 80202; 80307; 81001; 82565; 83605; 84550; 84702; 85025; 85652; 86140; 87040; 87070; 87077; 87186; 87205; 88307; 88311; 96365; 96372; 96375; A9579; E0113; J1170; J1200; J1885; J2270; J2405; J2543; J3370; J7030; J7050; L3260; Q9967

== ENCOUNTER 2018-01-15 11:03 | Emergency (ER) | payer OTHER ==
[~2018-01-15] VITALS: Ht 160 cm; Wt 60.0 kg
[~2018-01-15 11:03] MED LIST changes: -AUGM875T3 PO; +CIPR750T2 PO; -CLIN150C14 PO; -IBUP1TAB7 PO; +OXYC1TAB36 PO; +POST-OP SHOE/SO1 MIS; -TRAM50TA PO; +WALKER WHEELS/F1 MIS
[2018-01-15 11:22] VITALS: BP 117/62; PULSE 97; RESP 20; TEMP 98.7; O2SAT 97
[2018-01-15 11:58] LABS: AUTOMATED NEUTROPHIL # 4.4 TH/MM3 (1.8-7.7); BASOPHIL % 0.5 % (0.0-2.0); EOSINOPHIL # 0.1 TH/MM3 (0-0.4); EOSINOPHIL % 1.5 % (0.0-4.0); HEMATOCRIT 42.7 % (35.0-46.0); HEMOGLOBIN 14.6 GM/DL (11.6-15.3); LYMPH % 30.4 % (9.0-44.0); LYMPHOCYTE # 2.2 TH/MM3 (1.0-4.8); MEAN CELL VOLUME 89.6 FL (80.0-100.0); MEAN CORPUSCULAR HEMOGLOBIN 30.6 PG (27.0-34.0); MEAN CORPUSCULAR HGB CONC 34.2 % (32.0-36.0); MEAN PLATELET VOLUME 8.1 FL (7.0-11.0); MONO % 6.2 % (0.0-8.0); MONOCYTE # 0.4 TH/MM3 (0-0.9); NEUT % 61.4 % (16.0-70.0); PLATELET COUNT 330 TH/MM3 (150-450); RED BLOOD COUNT 4.77 MIL/MM3 (4.00-5.30); RED CELL DISTRIBUTION WIDTH 12.9 % (11.6-17.2); WHITE BLOOD COUNT 7.1 TH/MM3 (4.0-11.0)
--- NOTE | 2018-01-15 12:09 | PD ---
HPI Chief Complaint: Skin Problem Time Seen by Provider: 11:31 Travel History International Travel<30 days: No Contact w/Intl Traveler<30days: No Traveled to known affect area: No History of Present Illness HPI This is a 27-year-old female who presents to the emergency department with 2 weeks of swelling in her right great toe, constant, moderate severity not improving despite being on antibiotics for 1 week. She was admitted to our hospital from January 02 - January 08 and diagnosed with osteomyelitis in her right great toe. She was discharged on ciprofloxacin. She was concerned because her swelling has not improved. She denies any fevers or chills. She does have a primary care doctor appointment but was unable to make podiatry or infectious disease follow-up appointments due to her insurance. PFSH Past Medical History Bipolar Disorder: Yes Anxiety: Yes Depression: Yes Cancer: No Cardiovascular Problems: No Diabetes: No Diminished Hearing: No Endocrine: No Gastrointestinal Disorders: No Genitourinary: No Hepatitis: No Hiatal Hernia: No Hypertension: No Immune Disorder: No Medical other: No Musculoskeletal: No Neurologic: No Psychiatric: No Reproductive: No Respiratory: No Thyroid Disease: No ?: Not : 1 Para: 0 Miscarriage: 1 : 0 Past Surgical History Abdominal Surgery: Yes (APPY) Appendectomy: Yes Body Medical Devices: NONE Cardiac Surgery: No Ear Surgery: No Endocrine Surgery: No Eye Surgery: No Genitourinary Surgery: No Gynecologic Surgery: Yes (D&C) Neurologic Surgery: No Oral Surgery: No Thoracic Surgery: No Other Surgery: Yes Social History Alcohol Use: No Tobacco Use: Yes Substance Use: No Allergies-Medications (Allergen,Severity, Reaction): Coded Allergies: No Known Allergies (Unverified , 01/15/18) Reported Meds & Prescriptions Reported Meds & Active Scripts Active Ciprofloxacin (Ciprofloxacin HCl) 750 Mg Tab 750 Mg PO BID Walker with Front Wheels (Device) 1 Mis Mis Ea .XX DIRECTED Post-Op Shoe/Soft Top/Women 1 Mis Mis Ea .XX DIRECTED weight bearing on right heel Oxycodone-Acetaminophen 10-325 (Oxycodone HCl/Acetaminophen) 10 Mg-325 Mg Tablet 1 Tab PO Q6H PRN Review of Systems Except as stated in HPI: all other systems reviewed are Neg Physical Exam Narrative GENERAL:Well appearing, no acute distress SKIN: Old appearing incision on the base of the right great toe with no discharge, warmth or surrounding erythema. There is some erythema of the first MTP but no warmth. HEAD: Atraumatic. Normocephalic. EYES: Pupils equal and round. No injection or drainage. ENT: Moist mucous membranes NECK: Trachea midline. CARDIOVASCULAR: Regular rate and rhythm. No murmur appreciated. RESPIRATORY: Clear to auscultation. Breath sounds equal bilaterally. GASTROINTESTINAL: Abdomen soft, non-tender, nondistended. MUSCULOSKELETAL: No obvious deformities. NEUROLOGICAL: Awake and alert. No obvious cranial nerve deficits. Moving all extremities. PSYCHIATRIC: Appropriate mood and affect; insight and judgment normal. Data Data Last Documented VS Vital Signs Date Time Temp Pulse Resp B/P (MAP) Pulse Ox O2 Delivery O2 Flow Rate FiO2 01/15/18 11:38 94 20 01/15/18 11:22 98.7 117/62 (80) 97 Orders Orders Complete Blood Count With Diff (01/15/18 11:42) Westergren Sedimentation Rate (01/15/18 11:42) Labs Laboratory Tests Test 01/15/18 11:46 White Blood Count 7.1 TH/MM3 Red Blood Count 4.77 MIL/MM3 Hemoglobin 14.6 GM/DL Hematocrit 42.7 % Mean Corpuscular Volume 89.6 FL Mean Corpuscular Hemoglobin 30.6 PG Mean Corpuscular Hemoglobin Concent 34.2 % Red Cell Distribution Width 12.9 % Platelet Count 330 TH/MM3 Mean Platelet Volume 8.1 FL Neutrophils (%) (Auto) 61.4 % Lymphocytes (%) (Auto) 30.4 % Monocytes (%) (Auto) 6.2 % Eosinophils (%) (Auto) 1.5 % Basophils (%) (Auto) 0.5 % Neutrophils # (Auto) 4.4 TH/MM3 Lymphocytes # (Auto) 2.2 TH/MM3 Monocytes # (Auto) 0.4 TH/MM3 Eosinophils # (Auto) 0.1 TH/MM3 Basophils # (Auto) 0.0 TH/MM3 CBC Comment DIFF FINAL Differential Comment Erythrocyte Sedimentation Rate 8 mm/hr MDM Medical Decision Making Medical Screen Exam Complete: Yes Emergency Medical Condition: Yes Medical Record Reviewed: Yes (Patient was just hospitalized 1 week ago in the setting of right toe osteomyelitis) Interpretation(s) No leukocytosis Sed rate is normal Differential Diagnosis Osteomyelitis, cellulitis, abscess, sepsis Narrative Course This is a 27-year-old female who presents to the emergency department with swelling and redness of her right great toe. The toe is not warm and she has some redness but her exam is fairly benign. Sed rate is not elevated and she has no leukocytosis or fever. I think she is being appropriately treated with ciprofloxacin. She does require outpatient follow-up and I advised her that she needs to call Medicaid and obtain a referral to a store specialist. At this time I do not see any reason for admission and I think she can safely continue her management plan as an outpatient. Diagnosis Primary Impression: Osteomyelitis of toe of right foot Patient Instructions: General Instructions Additional Instructions: If you develop fever, chills, increasing redness or swelling or discharge from your foot return to the emergency room. Follow-up with your primary care physician and with a store specialist as an outpatient. Med/Other Pt SpecificInfo: No Change to Meds Disposition: 01 DISCHARGE HOME Condition: Stable Summer Vee MD January 15, 2018 12:09
[2018-01-15 13:27] VITALS: BP 114/76
== END 2018-01-15 13:28 | disposition home or self-care (01) ==
LOC: NEPE 11:03
DX: M86.9 Osteomyelitis, unspecified (principal); Z72.0 Tobacco use
CPT/HCPCS: 85025; 85652; 99283